=== PATIENT | female | born 1995 | race African-American/Black ===

== ENCOUNTER 2023-05-28 17:08 | Emergency (ER) | payer OTHER, SELFPAY ==
[2023-05-28] VITALS (9 sets, daily range): BP systolic 96–128; BP diastolic 53–98; PULSE 84–105; RESP 13–20; TEMP 36.2; O2SAT 93–100
--- NOTE | ~2023-05-28 | US_ITS ---
EXAMINATION: US OB <= 14 weeks fetus DATE: 05/28/2023 21:09 INDICATION: Left lower quadrant abdominal pain. Vaginal spotting. TECHNIQUE: Real-time transabdominal pelvic ultrasound was performed. COMPARISON: None. FINDINGS: The uterus measures 9.5 x 5.7 x 6.6 cm. There is an intrauterine gestational sac. A yolk sac is ident ified. The crown rump length measures 4 mm, which correlates with an estimated gestational age of 6 weeks and 1 day +/- 4 days. heart motion is identified measuring 148 beats per minute (bp m) by M-mode Doppler. The right ovary measures 3.4 x 2.4 x 2.0 cm. The left ovary is not visualized. There is no free fluid in the pelvis. IMPRESSION: 1. Single living intrauterine gestation with estimated date of delivery of 01/20/2024. Reviewed, dictated and finalized at location E. WORKER IMPRESSION: 1. Single living intrauterine gestation with estimated date of delivery of .
[2023-05-28 18:10] LABS: Basophils Absolute Auto 0.1 K/mm3 (0.0-0.1); Basophils Percent Auto 0.5 % (0.2-1.2); Eosinophils Percent Auto 0.1 % (0-4.4); Hematocrit 44.1 % (37.0-47.0); Hemoglobin 13.9 g/dL (12.0-15.0); Immature Granulocyte Absolute 0.02 K/mm3 (0.00-0.031); Immature Granulocyte Percent A 0.2 % (0-0.5); Lymphocytes Absolute Auto 3.31 K/mm3 (0.9-3.2); Lymphocytes Percent Auto 34.4 % (18.3-44.2); Mean Corpuscular HGB Conc 31.5 g/dl (32-36); Mean Corpuscular Hemoglobin 25.6 pg (26-34); Mean Corpuscular Volume 81.1 fl (80-100); Mean Platelet Volume 9.5 fl (7.4-10.4); Monocytes Absolute Auto 0.9 K/mm3 (0.1-0.6); Monocytes Percent Auto 9.6 % (2.6-8.5); Neutrophils Absolute Auto 5.3 K/mm3 (1.3-6.7); Neutrophils Percent Auto 55.2 % (45.5-73.1); Platelet Count Result 425 k/mm3 (150-375); Red Blood Count 5.44 M/mm3 (4.2-5.4); Red Cell Distribution Width 14.9 % (11.5-14.5); White Blood Count 9.6 K/mm3 (4.5-10.0)
[2023-05-28 18:18] LABS: Appearance Urine Clear (Clear); Bacteria Urine 1+ /hpf; Bilirubin Urine Negative (Negative); Blood Urine Negative (Negative); Color Urine Dark Yellow (Yellow); Glucose Urine UA Negative (Negative); Ketones Urine 3+ mg/dL (Negative); Leukocyte Esterase Ur Negative LEU/UL (Negative); Nitrate Urine Negative (Negative); Non Pathogenic Casts 0-2; Protein Urine Trace mg/dL (Negative); RBC Urine 0-2 /hpf (0-2); Specific Grav Ur 1.032 (1.001-1.035); Squamous Epithelial Cell Urine Few /hpf (Few); Urobilinogen Urine 0.2 mg/dL (<2.0); WBC Urine 0-5 /hpf
[2023-05-28 18:21] LABS: Alanine Aminotransferase 16 U/L (6-35); Albumin Level 4.8 g/dL (3.5-5.1); Alkaline Phosphatase 63 U/L (38-126); Anion Gap 12 mmol/L (8-16); Aspartate Amino Transferase 31 U/L (14-36); Bilirubin,Total 0.8 mg/dL (0.2-1.3); Blood Urea Nitrogen 10 mg/dL (7-17); Calcium 9.9 mg/dL (8.4-10.2); Carbon Dioxide 23 mmol/L (22-30); Chloride 101 mmol/L (98-107); Estimated CRCL calculation 91 ml/min; Estimated Glomerular Filt Rate > 60; Glucose 98 mg/dL (65-110); Lipase 40 U/L (23-300); Potassium 3.5 mmol/L (3.4-5.0); Sodium 136 mmol/L (137-145)
[2023-05-28 18:31] LABS: Add Urine Microscopic? YES
[2023-05-28] MEDS: METOCLOPRAMIDE HCL INJ 10 MG/2 ML VIAL IV PUSH (20:09)
[2023-05-28] MEDS: FAMOTIDINE 20 MG/2 ML VIAL IV PUSH (20:09)
[2023-05-28] MEDS: diphenhydrAMINE HCl INJ 50 MG/ML VIAL 25 MG IV PUSH (20:09)
[2023-05-28] MEDS: SODIUM CHLORIDE 0.9% IV 1,000 ML 999 ML IV CONT ×2 (20:09)
--- NOTE | 2023-05-28 20:39 | ED.NAVMDI ---
HPI - Nausea/Vomiting/Diarrhea General Chief complaint: Nausea/Vomiting/Diarrhea Stated complaint: vomitting, preg Time Seen by Provider: 05/28/23 18:30 Source: patient Mode of arrival: ambulatory Limitations: no limitations History of Present Illness HPI Narrative: Patient is a 27-year-old female who presents to the ED with report of nausea and vomiting. Patient reports having ongoing nausea and vomiting over the last 1 week, but states it became worse yesterday into today. She notes at least 10+ episodes of emesis yesterday and today. Patient is in currently approximately 6 weeks gestation by last normal menstrual cycle. She has not seen an OBGYN for this current . Has not had an ultrasound yet for this . She is scheduled to follow up with [facility] [place] in 2 weeks. She reports having lower abdominal cramping, worse on the left side, as well as a small amount of vaginal spotting with wiping earlier today. Denies heavy vaginal bleeding. Denies dysuria, hematuria. Denies diarrhea, constipation, fevers. Related Data Allergies Allergy/AdvReac Type Severity Reaction Status Date / Time No Known Allergies Allergy Verified 05/28/23 17:14 Review of Systems Review of Systems: CONSTITUTIONAL: Denies fever, chills, or sweats. CARDIOVASCULAR: Denies chest pain. RESPIRATORY: Denies dyspnea. GASTROINTESTINAL: See HPI. GENITOURINARY: See HPI. Denies dysuria or hematuria. All systems reviewed & are unremarkable except as noted in HPI and below Exam Narrative: GENERAL: Well appearing, thin, non-toxic, in no acute distress. HEAD: Normocephalic, atraumatic. RESPIRATORY: Airway patent, respirations nonlabored. Clear to auscultation bilaterally, no rales, rhonchi, wheezing. CARDIOVASCULAR: Borderline tachycardic with regular rhythm without murmurs, rubs, or gallops. ABDOMINAL: Soft, mild tenderness in LLQ, nondistended. Normoactive BS. MUSCULOSKELETAL: Moves all extremities. No gross deformities. SKIN: Warm, dry, normal color. NEURO: A&O X3. Speech clear. PSYCHIATRIC: Appropriate mood and affect. Normal interaction. Course Vital Signs Vital signs: Vital Signs Temperature 97.1 F L 05/28/23 17:09 Pulse Rate 102 H 05/28/23 17:09 Respiratory Rate 20 05/28/23 17:09 Blood Pressure 119/78 05/28/23 17:09 Pulse Oximetry 100 05/28/23 17:09 Oxygen Delivery Room Air 05/28/23 17:09 Temperature 97.1 F L 05/28/23 17:09 Pulse Rate 85 05/28/23 22:54 Respiratory Rate 16 05/28/23 22:54 Blood Pressure 102/53 L 05/28/23 22:54 Pulse Oximetry 97 05/28/23 22:54 Oxygen Delivery Room Air 05/28/23 17:09 MDM - Nausea/Vomiting/Diarrhea MDM Narrative Medical decision making narrative: Patient presented to ED with ongoing nausea and vomiting over the last 1 week, worse over the last 2 days, currently approximately 6 weeks gestation. Also reporting left lower quadrant abdominal pain, small episode of vaginal spotting, has not had previous ultrasound for this . Fluids, Benadryl, Reglan, Pepcid initiated. Laboratory studies fairly unremarkable. Stable H&H. No leukocytosis. Stable electrolytes. Urinalysis with 3+ ketones, no significant evidence for infection. Ultrasound obtained to rule out ectopic, shows single live IUP, 6 weeks 1 day. Good FHT. Beta quant [id number]. Patient is O+, no indication for RhoGAM. On reevaluation, patient sleeping/resting comfortably. Feeling better with supportive therapy. She was updated on lab and imaging findings. Will be discharged at this time. Will send for Reglan for home. Advised close follow-up with obgyn for further evaluation. Discussed strict return precautions. She agrees with plan. Discharged in stable condition. Medical Records Attestation: I reviewed the patient's medical records. Lab Data Attestation: I reviewed the patient's lab results. 05/28/23 17:53 05/28/23 17:53 Labs: Lab Resu
[2023-05-28] MEDS: ONDANSETRON INJ 4 MG/2 ML VIAL IV PUSH (22:22)
[2023-05-28] MEDS: ACETAMINOPHEN 500 MG TABLET 1000 MG PO (22:23)
[2023-05-29 00:27] VITALS: PULSE 72; RESP 16; O2SAT 98
== END 2023-05-29 00:28 | disposition home or self-care (01) ==
PROVIDERS: Emergency Medicine; Emergency Provider Physician Assistant
DX: O21.9 Vomiting of pregnancy, unspecified (principal); Z3A.01 Less than 8 weeks gestation of pregnancy
CPT/HCPCS: 36415; 76801; 80053; 81001; 81025; 83690; 84702; 85025; 85461; 86850; 86900; 86901; 96361; 96374; 96375; 99284; A9270; J1200; J2405; J2765; J7030

== ENCOUNTER 2023-06-02 15:05 | Emergency (ER) | payer OTHER, SELFPAY ==
--- NOTE | ~2023-06-02 | US_ITS ---
EXAMINATION: US OB <= 14 weeks fetus INDICATION: lower abdominal pain TECHNIQUE: Sonography of the pelvis was performed by transabdominal and transvaginal techniques. COMPARISON: 05/28/2023. RESULT: Uterus: 9.6 x 6.2 x 7.2 cm. Anteverted. Homogenous myometrium. Intrauterine gestational sac: Single present. Mean Sac Diameter: 2.5 cm, corresponding gestational age 7 week 4 days. Yolk sac: Poorly visualized due to lack of the normal echogenic wall, less well vi sualized in the prior examination. Somewhat tubular appearing echogenicity within the gestational sac , possibly representing early visualization of the umbilical cord. Embryo: Single present. [place] rump length: 0.82 cm, corresponding gestational age 6 weeks, 5 days. Gestational heart rate: present 136 bpm. Subgestational hematoma: Absent . Right ovary: 2.7 x 1.7 x 2.6 cm. Vascular flow is present. No adnexal mass. Left ovary: Obscured by bowel gas. Pelvis free fluid: None. IMPRESSION: Single, live intrauterine gestation. Poorly defined yolk sac, consider gynecology referral and sonogr aphic follow-up as clinically indicated. Estimated Gestational Age: 6 weeks, 5 days plus/-4 days by crown rump length. AROLDO by ultrasound 01/04. Reviewed, dictated and finalized at location K. OUNT CLERK IMPRESSION: Single, live intrauterine gestation. Poorly defined yolk sac, consider gynecolo gy referral and sonographic follow-up as clinically indicated. Estimated Gestational Age: 6 weeks, 5 days plus/-4 days by crown rump length. AROLDO by ultrasound 01/21/2024.
[2023-06-02 15:14] VITALS: BP 108/67; PULSE 81; RESP 20; TEMP 36.4; O2SAT 99
--- NOTE | 2023-06-02 15:22 | ED.NAVMDI ---
HPI - Nausea/Vomiting/Diarrhea General Chief complaint: Nausea/Vomiting/Diarrhea <BENNY Landis Last Filed: 06/02/23 15:26> Stated complaint: n/v/d abd pain <BENNY Landis Last Filed: 06/02/23 15:26> Time Seen by Provider: 06/02/23 15:22 <BENNY Landis Last Filed: 06/02/23 15:26> Focused HPI: Patient is a 28-year-old female who presents the ED via EMS with report of nausea and vomiting. Patient is in currently around 7 weeks gestation. She reports having persistent nausea and vomiting, unable to keep down any food or drink. She was seen in our ED on 05/28 for similar symptoms, improved with supportive therapy in the ED. Discharged with oral Reglan, however she states she is unable to keep this down. Patient feels very weak and fatigued. She does also report having diarrhea, lower abdominal cramping, subjective fevers. Denies cough or cold symptoms. US from 05/28 showed single live IUP, good FHTs. Patient has her first OBGYN appt with [facility] [place] in the next 2 weeks. She did not contact office after last ED visit. GENERAL: Mildly ill-appearing, well-nourished, and in no acute distress. HEAD: Normocephalic, atraumatic. CHEST: Clear to auscultation. ?No respiratory distress. Spitting into emesis bag. HEART: Regular rate and rhythm.? NEURO: ?Alert and oriented x3. Patient screened in triage and initial orders placed.? ?Additional care and disposition to be based upon?diagnostic testing and treatment. <BENNY Landis Last Filed: 06/02/23 15:26> Source: patient and old records reviewed <BENNY Landis Last Filed: 06/02/23 15:26> Mode of arrival: EMS <BENNY Landis Last Filed: 06/02/23 15:26> Limitations: no limitations <BENNY Landis Last Filed: 06/02/23 15:26> Related Data Allergies/Adverse reactions: Allergies Allergy/AdvReac Type Severity Reaction Status Date / Time No Known Allergies Allergy Verified 05/28/23 17:14 <BENNY Landis Last Filed: 06/02/23 15:26> Review of Systems Review of Systems: All systems as dictated in HPI <BENNY Pascual Last Filed: 06/03/23 00:59> Exam Narrative: GENERAL: Well-appearing, well-nourished, and in no acute distress. HEAD: Normocephalic, atraumatic. EYES: PERRLA and EOMI. ENT: Nares clear, no rhinorrhea or epistaxis. Mucous membranes moist. Oropharynx without tonsillar hypertrophy exudate or other lesions. NECK: Supple. No adenopathy or masses. CHEST: No respiratory distress. Clear to auscultation. No wheezes rales or rhonchi HEART: Regular rate and rhythm. No murmur heard. Normal peripheral pulses. ABDOMEN: Soft, nontender, nondistended, normal active bowel sounds. MSK: Normal range of motion. No edema. SKIN: Warm, dry, no rash. NEURO: Alert and oriented x3. No focal deficits. PSYCH: Normal mood and affect. <BENNY Pascual Last Filed: 06/03/23 00:59> Course Vital Signs Vital signs: Vital Signs Temperature 97.5 F L 06/02/23 15:14 Pulse Rate 81 06/02/23 15:14 Respiratory Rate 20 06/02/23 15:14 Blood Pressure 108/67 06/02/23 15:14 Pulse Oximetry 99 06/02/23 15:14 Oxygen Delivery Room Air 06/02/23 15:14 Temperature 99.5 F 06/02/23 18:21 Pulse Rate 84 06/02/23 20:40 Respiratory Rate 13 06/02/23 20:40 Blood Pressure 118/72 06/02/23 20:40 Pulse Oximetry 100 06/02/23 20:40 Oxygen Delivery Room Air 06/02/23 19:05 <BENNY Landis Last Filed: 06/02/23 15:26> Vital Signs Temperature 97.5 F L 06/02/23 15:14 Pulse Rate 81 06/02/23 15:14 Respiratory Rate 20 06/02/23 15:14 Blood Pressure 108/67 06/02/23 15:14 Pulse Oximetry 99 06/02/23 15:14 Oxygen Delivery Room Air 06/02/23 15:14 Temperature 99.5 F 06/02/23 18:21 Pulse Rate 84 06/02/23 20:40 Respiratory Rate 13 06/02/23 20
[2023-06-02] MEDS: METOCLOPRAMIDE HCL INJ 10 MG/2 ML VIAL IV PUSH (15:44)
[2023-06-02 15:52] LABS: Basophils Percent Auto 0.3 % (0.2-1.2); Eosinophils Percent Auto 0.1 % (0-4.4); Hematocrit 36.6 % (37.0-47.0); Hemoglobin 11.7 g/dL (12.0-15.0); Immature Granulocyte Absolute 0.01 K/mm3 (0.00-0.031); Immature Granulocyte Percent A 0.1 % (0-0.5); Lymphocytes Absolute Auto 2.23 K/mm3 (0.9-3.2); Lymphocytes Percent Auto 29.6 % (18.3-44.2); Mean Corpuscular Hemoglobin 25.6 pg (26-34); Mean Corpuscular Volume 80.1 fl (80-100); Mean Platelet Volume 9.5 fl (7.4-10.4); Monocytes Absolute Auto 0.6 K/mm3 (0.1-0.6); Monocytes Percent Auto 7.4 % (2.6-8.5); Neutrophils Absolute Auto 4.7 K/mm3 (1.3-6.7); Neutrophils Percent Auto 62.5 % (45.5-73.1); Platelet Count Result 332 k/mm3 (150-375); Red Blood Count 4.57 M/mm3 (4.2-5.4); Red Cell Distribution Width 14.6 % (11.5-14.5); White Blood Count 7.5 K/mm3 (4.5-10.0)
[2023-06-02 15:58] VITALS: BP 120/66; PULSE 99; RESP 16; O2SAT 97
[2023-06-02 16:11] LABS: Alanine Aminotransferase 14 U/L (6-35); Albumin Level 4.2 g/dL (3.5-5.1); Alkaline Phosphatase 62 U/L (38-126); Anion Gap 6 mmol/L (8-16); Aspartate Amino Transferase 31 U/L (14-36); Bilirubin,Total 0.6 mg/dL (0.2-1.3); Blood Urea Nitrogen 9 mg/dL (7-17); Calcium 9.3 mg/dL (8.4-10.2); Carbon Dioxide 25 mmol/L (22-30); Chloride 102 mmol/L (98-107); Estimated Glomerular Filt Rate > 60; Glucose 80 mg/dL (65-110); Magnesium 1.8 mg/dL (1.6-2.3); Potassium 3.2 mmol/L (3.4-5.0); Sodium 133 mmol/L (137-145)
[2023-06-02 16:32] LABS: Influenza A QL RT-PCR Negative (Negative); Influenza B QL RT-PCR Negative (Negative); RSV RNA, RT-PCR Negative (Negative); SARS-CoV-2 RNA PCR Negative (Negative)
[2023-06-02] MEDS: SODIUM CHLORIDE 0.9% IV 1,000 ML 999 ML IV CONT (18:19)
[2023-06-02 18:21] VITALS: BP 110/70; PULSE 82; RESP 14; TEMP 37.5; O2SAT 100
[2023-06-02] MEDS: ACETAMINOPHEN 500 MG TABLET 1000 MG PO (19:03)
[2023-06-02] MEDS: ONDANSETRON INJ 4 MG/2 ML VIAL IV PUSH (19:03)
[2023-06-02 19:05] VITALS: BP 114/70; PULSE 86; RESP 18; O2SAT 100
[2023-06-02 19:37] LABS: Appearance Urine Cloudy (Clear); Bacteria Urine 1+ /hpf; Bilirubin Urine Negative (Negative); Blood Urine Negative (Negative); Color Urine Yellow (Yellow); Glucose Urine UA Negative (Negative); Ketones Urine 4+ mg/dL (Negative); Leukocyte Esterase Ur Trace LEU/UL (Negative); Nitrate Urine Negative (Negative); Non Pathogenic Casts 0-2; Protein Urine 1+ mg/dL (Negative); RBC Urine 0-2 /hpf (0-2); Specific Grav Ur 1.034 (1.001-1.035); Squamous Epithelial Cell Urine Few /hpf (Few); WBC Urine 0-5 /hpf; pH Urine 6.5 (5.0-9.0)
[2023-06-02 19:39] LABS: Add Urine Microscopic? YES
[2023-06-02] MEDS: PYRIDOXINE HCL 25 MG TABLET PO (20:33)
[2023-06-02 20:36] VITALS: BP 118/72; O2SAT 99
[2023-06-02 20:40] VITALS: BP 118/72; PULSE 84; RESP 13; O2SAT 100
== END 2023-06-02 21:30 | disposition home or self-care (01) ==
PROVIDERS: Physician Assistant; Emergency Provider Physician Assistant
DX: O21.0 Mild hyperemesis gravidarum (principal); Z3A.01 Less than 8 weeks gestation of pregnancy; Z20.822 Contact with and (suspected) exposure to COVID-19
CPT/HCPCS: 36415; 76801; 80053; 81001; 83735; 84702; 85025; 87637; 96361; 96374; 96375; 99284; A9270; J2405; J2765; J7030

== ENCOUNTER 2023-12-28 19:07 | Inpatient (IN) | payer OTHER, SELFPAY ==
[2023-12-28 20:34] VITALS: BMI 27.3
--- NOTE | 2023-12-28 20:34 | WPDANESEPP ---
Anes - Eval Pre Procedure Procedure: labor epidural Date/Time: 12/28/23 20:34 Surgeon: augie Preop Diagnosis: pain during labor Pre Op Diagnosis: leaking Patient Data Age: 28 Gender: F Height: Weight: Allergies Allergy/AdvReac Type Severity Reaction Status Date / Time No Known Allergies Allergy Verified 05/28/23 17:14 Home Medications Medication Instructions Recorded Confirmed Type metoclopramide HCl 5 mg tablet 5 mg PO Q6H PRN nausea and 05/28/23 Rx vomiting #15 tabs ondansetron 4 mg disintegrating 4 mg PO Q8H PRN nausea and 06/02/23 Rx tablet vomiting #10 tabs pyridoxine (vitamin B6) 25 mg 25 mg PO DAILY #30 tabs 06/02/23 Rx tablet Laboratory Tests 12/28/23 20:17 WBC Pending RBC Pending Hgb Pending Hct Pending MCV Pending MCH Pending MCHC Pending RDW Pending Plt Count Pending MPV Pending Immature Gran % (Auto) Pending Neut % (Auto) Pending Lymph % (Auto) Pending [place] % (Auto) Pending Eos % (Auto) Pending Baso % (Auto) Pending Lymph # (Auto) Pending [place] # (Auto) Pending Eos # (Auto) Pending Baso # (Auto) Pending Abs Immat Gran (auto) Pending Absolute Neuts (auto) Pending Absolute Nucleated RBC Pending Nucleated RBC % Pending RPR Pending HIV 1&2 Ab/P24 Ag 4thGn Pending Patient hx anesthesia problems: none Family hx anesthesia problems: none Results Review: All pre-operative results and documents have been reviewed as part of the pre-operative evaluation. [facility] Past Medical History Medical History (Updated 12/28/23 @ 20:34 by Renay Burks CRNA) IUP (intrauterine ), incidental Exam Day of Procedure 12/28/23 20:34
--- NOTE | 2023-12-28 20:34 | LDADM ---
This patient, Sally De Oliveira, was admitted to Labor/Delivery/Recovery 106 on 12/28/23 at 19:07. Plans for labor, pain management and were discussed with patient. Patient/family oriented to hospital policies and general routines including ID bracelet, bed and alarms, visiting hours, pain management, procedures, bathroom and other care routines, personal items, smoking policy, room service/diet and guest tray routines, infant security routines, and visiting hours. Patient/Family are encouraged to report perceived risks to care and to ask questions if they do not understand what they are told or what they should do. See OBIX for further documentation.
[2023-12-28 20:49] LABS: Basophils Percent Auto 0.3 % (0.2-1.2); Eosinophils Percent Auto 0.3 % (0-4.4); Hematocrit 37.1 % (37.0-47.0); Hemoglobin 11.5 g/dL (12.0-15.0); Immature Granulocyte Absolute 0.04 K/mm3 (0.00-0.031); Immature Granulocyte Percent A 0.5 % (0-0.5); Immature Platelet Fraction Pct 8.2 % (0.9-11.2); Lymphocytes Absolute Auto 2.11 K/mm3 (0.9-3.2); Lymphocytes Percent Auto 23.9 % (18.3-44.2); Mean Corpuscular Volume 77.3 fl (80-100); Mean Platelet Volume 11.6 fl (7.4-10.4); Monocytes Absolute Auto 0.7 K/mm3 (0.1-0.6); Monocytes Percent Auto 7.8 % (2.6-8.5); Neutrophils Absolute Auto 5.9 K/mm3 (1.3-6.7); Neutrophils Percent Auto 67.2 % (45.5-73.1); Platelet Count Result 237 k/mm3 (150-375); White Blood Count 8.8 K/mm3 (4.5-10.0)
--- NOTE | 2023-12-28 21:04 | PM.IMHP ---
H&P: HPI History of Present Illness Date/Time: 12/28/23 21:04 Chief Complaint: leakage of clear fluid since 1500 Narrative: Sally is a 28yo @ 36.4wks (AROLDO 01/21/24) who presented to L&D with complaints of leakage of clear fluid since 3pm today. She reports contractions. She's feeling good movement. She denies any vaginal bleeding. She has had regular care at [place]. Review of records indicate possible SGA, but EFW at end of Nov 2023 showed EFW of 38%ile. GBS is unknown. UDS positive for marijuana. Other labs reviewed and normal. Review of Systems Constitutional: Constitutional: Denies chills, Denies fever(s) and Denies headache(s) Eyes: Eyes: Denies change in vision ENT: Denies headache(s) Cardiovascular: Cardiovascular: Denies chest pain and Denies dyspnea Respiratory: Respiratory: Denies dyspnea Genitourinary: Genitourinary: Denies abnormal vaginal bleeding and Reports vaginal discharge Neurologic: Denies headache(s) Psychiatric: Psychiatric: Denies anxiety and Denies depression [facility] Past Medical History Medical History (Updated 12/28/23 @ 21:07 by Nidia Wallace MD) IUP (intrauterine ), incidental Social History Social History Smoking status: Never smoker Second hand tobacco smoke exposure: No Do You Feel Safe in your Home?: Yes Lack of Transportation: No Lack of Food: Never True Current Housing: I Have Housing Concerned About Future Housing: No Difficulty Paying Gas/Electric Bills: No Difficulty Paying for Meds: No Currently Unemployed: No Education: High School Diploma/GED Difficulty w/ Childcare or Family Care: No Spiritual care concerns: No Meds Home Medications and Allergies Home Medications Medication Instructions Recorded Confirmed Type metoclopramide HCl 5 mg tablet 5 mg PO Q6H PRN nausea and 05/28/23 Rx vomiting #15 tabs ondansetron 4 mg disintegrating 4 mg PO Q8H PRN nausea and 06/02/23 Rx tablet vomiting #10 tabs pyridoxine (vitamin B6) 25 mg 25 mg PO DAILY #30 tabs 06/02/23 Rx tablet Allergies Allergy/AdvReac Type Severity Reaction Status Date / Time No Known Allergies Allergy Verified 05/28/23 17:14 Vital Signs Vital Signs - 24 hr 12/28/23 20:34 Oxygen Delivery Room Air Exam Const: General: cooperative, healthy appearing, comfortable and no acute distress Nutritional Appearance: obese Orientation/consciousness: patient oriented x3 Resp: Effort & Inspection: normal respiratory effort Cardio: Rate: regular rate GI: GI Palp: No abdominal tenderness : Other: FHT's: 135's/ mod jac/ + accels/ no decels - cat 1 TOCO: irregular ctxs Cervix: 5/75/-2 Membranes: SROM @ 1500 on 12/28/23 Presentation: cephalic Skin: General skin exam: normal color Neuro: General: patient oriented x3 Extrem: General: normal to inspection Psych: Appearance: grossly normal Affect: normal affect Attitude: cooperative Assessment and Plan Assessment and plan (1) premature rupture of membranes (PPROM) with unknown onset of labor: Code(s): O42.919 - premature rupture of membranes, unspecified as to length of time between rupture and onset of labor, unspecified trimester Status: Acute Plan - ROM+ swab positive on exam; pt 5cm dilated - Ampicillin for prematurity and GBS unknown - Continuous heart rate monitoring; currently reassuring - Will start low dose pitocin augmentation if cervix unchanged after 2 hours - Anesthesia consult PRN pain
[2023-12-28 21:11] LABS: Platelet Estimate Adequate (Adequate); Schistocytes None Seen
[2023-12-28 21:12] LABS: Anisocytosis 2+; Hypochromasia 1+
[2023-12-28 21:16] LABS: HIV 1/2 Ab P24 Ag Result Negative (Negative)
[2023-12-28] MEDS: LACTATED RINGERS 1,000 ML 125 ML IV CONT (21:29)
[2023-12-28] MEDS: AMPICILLIN 2 GM/NS 100 ML 2 GM/100 ML BAG IVPB (21:31)
[2023-12-28 21:43] LABS: Rapid Plasma Reagin Non-Reactive (NonReactive)
[2023-12-28 21:46] VITALS: BP 102/57; PULSE 88
[2023-12-28 21:48] VITALS: TEMP 37.1
[2023-12-28 21:59] LABS: OBXCEM ROM Plus Positive (Negative)
[2023-12-28 22:00] VITALS: BP 121/75
[2023-12-28 22:30] VITALS: BP 126/78; PULSE 121
[2023-12-28 23:00] VITALS: BP 119/87; PULSE 93; TEMP 36.6
[2023-12-28 23:51] VITALS: BP 104/69; PULSE 88
[2023-12-29] VITALS (35 sets, daily range): BP systolic 93–128; BP diastolic 54–87; PULSE 62–106; RESP 16; TEMP 36.6–37.3; O2SAT 96–100
[2023-12-29] MEDS: OXYTOCIN 30 UNITS/NS 500 ML 30 UNITS/500 ML BAG IV CONT (00:22)
[2023-12-29] MEDS: AMPICILLIN 1 GM/NS 50 ML 1 GM/50 ML BAG IVPB (01:30)
[2023-12-29] MEDS: fentaNYL CITRATE INJ (*CRX) 100 MCG/2 ML VIAL 50 MCG IV PUSH (04:39)
[2023-12-29] MEDS: LACTATED RINGERS 1,000 ML 125 ML IV CONT (04:42)
--- NOTE | 2023-12-29 05:31 | PM.OBPRVD ---
OB - Vaginal Delivery Note Procedure Delivery date: 12/29/23 Events: Premature Rupture of Membranes Delivery augmentation: Pitocin Delivery monitor: External FHT and External Uterine Route of delivery: Episiotomy description: None Laceration Description: Perineal - 1st Degree Delivery repair: vicryl Specimen: Yes (placenta) Quantitative Blood Loss (ml): 150 Anesthesia type: Local (7cc of 1% lidocaine w/o epi) Disposition: Floor Complications: No immediate complications Baby Date of : 12/29/23 Time of : 05:05 Gestational Age by Date: 36 (.5) gender: Female Weight (pounds): 5 Weight (ounces): 10 presentation: vertex position: Left Occiput Transverse Placenta delivery description: Expressed Cord Vessel Description: 3 Vessels, Nuchal Cord, Reduced and Delayed Cord Clamping score one minute: 9 score five minutes: 9 Narrative: Sally rapidly progressed to complete dilation with strong desire to push. She pushed for approximately 2 contractions with good maternal effort and delivered the head over intact. Nuchal cord was noted and reduced. She easily delivered the infant's shoulders and body without complication and the was immediately placed skin to skin and had spontaneous cry. Delayed cord clamping was performed. The umbilical cord was then doubly clamped and cut. A segment of cord was collected for cord gases. The remaining cord blood was collected for typing. With Pitocin running and gentle downward traction on the cord, the placenta delivered without complication. Fundal massage revealed good uterine tone with minimal bleeding. She was examined and a small first-degree perineal laceration was identified. She was anesthetized with 1% lidocaine without epinephrine. The laceration was then repaired in the normal fashion using 2-0 Vicryl and was found to be hemostatic. Fundal massage was once again performed and good uterine tone with minimal bleeding was noted. Sponge, lap, instrument, and needle counts were correct at the end of the procedure. Mom and baby were left bonding in the birthing suite in stable condition.
[2023-12-29] MEDS: OXYTOCIN 30 UNITS/NS 500 ML 30 UNITS/500 ML BAG 125 UNITS IV CONT (05:42)
--- NOTE | 2023-12-29 09:00 | OBPPTRN ---
Patient transferred to post room #282 via wheelchair. Support person present. Oriented to unit, room, information board, rooming in, admission packet and security measures. Patient verbalizes understanding.
[2023-12-29] MEDS: IBUPROFEN 600 MG TABLET PO (10:36)
--- NOTE | 2023-12-29 13:58 | PCCCNOTE ---
Per Care Coordination. Patient referred to CC for possible supply needs and walk in delivery. Spoke with pt. at bedside. She reports wanting to deliver here because she's heard we're a good hospital. She reports just recently moved to [place] in the last 2 months. She plans to return there with her other kids after delivery. Pt. got her care at [place] in which the doctors there deliver in [place] and pt. wanted to deliver here. No UDS done for mom or baby. Pt. reports had baby shower day before she came in, so she has most supplies, but needs a few more things. Provided her with basket of baby care items. Pt. reports having family support. FOB involved, but they don't live together. Provided pt. WIC information for [place] near where she lives. No further CC needs identified.
[2023-12-29] MEDS: DOCUSATE SODIUM 100 MG CAPSULE PO (17:20)
[2023-12-30] MEDS: ACETAMINOPHEN 325 MG TABLET 650 MG PO ×2 (00:20→16:05)
[2023-12-30 04:30] VITALS: BP 112/84; PULSE 61; RESP 16; TEMP 36.5; O2SAT 100
[2023-12-30 04:42] LABS: Hematocrit 34.2 % (37.0-47.0); Mean Corpuscular HGB Conc 32.2 g/dl (32-36); Mean Corpuscular Hemoglobin 24.7 pg (26-34); Mean Corpuscular Volume 76.9 fl (80-100); Mean Platelet Volume 11.2 fl (7.4-10.4); Platelet Count Result 246 k/mm3 (150-375); Red Blood Count 4.45 M/mm3 (4.2-5.4); Red Cell Distribution Width 20.5 % (11.5-14.5); White Blood Count 10.7 K/mm3 (4.5-10.0)
--- NOTE | 2023-12-30 06:26 | PM.OBPNVD ---
OB - PN: Subj Subjective Date/time seen: 12/30/23 07:03 Narrative: PPD#1 Sally reports doing well today. 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 Her pain is controlled. She is tolerating regular diet, voiding, passing gas, and ambulating without issues. She is breast and bottle feeding. OB - PN: Obj Data Labs 12/30/23 04:28 Labs: Laboratory Results - last 24 hr 12/28/23 12/28/23 12/28/23 19:24 20:17 20:18 WBC RBC Hgb Hct MCV MCH MCHC RDW Plt Count MPV Immature Gran % (Auto) Neut % (Auto) Lymph % (Auto) [place] % (Auto) Eos % (Auto) Baso % (Auto) Lymph # (Auto) [place] # (Auto) Eos # (Auto) Baso # (Auto) Abs Immat Gran (auto) Absolute Neuts (auto) Absolute Nucleated RBC Nucleated RBC % Platelet Estimate % Immature Plt Fraction Hypochromasia Anisocytosis Schistocytes Membranes Rupture Rom plus positive RPR Non-reactive HIV 1&2 Ab/P24 Ag 4thGn Negative Blood Type O Positive Antibody Screen Negative 12/28/23 20:38 WBC 8.8 RBC 4.80 Hgb 11.5 L Hct 37.1 MCV 77.3 L MCH 24.0 L MCHC 31.0 L RDW 21.0 H Plt Count 237 MPV 11.6 H Immature Gran % (Auto) 0.5 Neut % (Auto) 67.2 Lymph % (Auto) 23.9 [place] % (Auto) 7.8 Eos % (Auto) 0.3 Baso % (Auto) 0.3 Lymph # (Auto) 2.11 [place] # (Auto) 0.7 H Eos # (Auto) 0.0 Baso # (Auto) 0.0 Abs Immat Gran (auto) 0.04 H Absolute Neuts (auto) 5.9 Absolute Nucleated RBC 0.000 Nucleated RBC % 0.0 Platelet Estimate Adequate % Immature Plt Fraction 8.2 Hypochromasia 1+ Anisocytosis 2+ Schistocytes None seen Membranes Rupture RPR HIV 1&2 Ab/P24 Ag 4thGn Blood Type Antibody Screen OB - PN A/P Assessment and Plan (1) Normal vaginal delivery: Code(s): O80 - Encounter for full-term uncomplicated delivery Status: Acute (2) premature rupture of membranes (PPROM) with unknown onset of labor: Code(s): O42.919 - premature rupture of membranes, unspecified as to length of time between rupture and onset of labor, unspecified trimester Status: Acute Plan day: 1 Plan: routine care Comments: - PO pain meds - Regular diet - Ambulation and hydration encouraged - Continue putting baby to breast q2-3hr Time Spent With Patient Time: Total time spent is greater than 50% in coordination of care (as documented) at patient's floor/unit and/or counseling patient: Review of Systems Constitutional: Constitutional: Denies chills, Denies fever(s) and Denies headache(s) Eyes: Eyes: Denies change in vision ENT: Denies dizziness and Denies headache(s) Cardiovascular: Cardiovascular: Denies chest pain, Denies palpitations and Denies dyspnea Respiratory: Respiratory: Denies cough and Denies dyspnea Gastrointestinal: Gastrointestinal: Denies nausea and Denies vomiting Neurologic: Denies dizziness and Denies headache(s) Endocrine: Endocrine: Denies palpitations Exam Const: General: cooperative, comfortable and no acute distress Orientation/consciousness: patient oriented x3 Resp: Effort & Inspection: normal respiratory effort Auscultation: clear to auscultation bilaterally Cardio: Rate: regular rate GI: Inspection: non-distended GI Palp: No abdominal tenderness and Yes Soft to palpation Auscultation: normal bowel sounds : Other: fundus firm Skin: General skin exam: normal color Neuro: General: patient oriented x3 Extrem: General: normal to inspection Psych: Appearance: grossly normal Affect: normal affect Attitude: cooperative
[2023-12-30] MEDS: MULTIVIT/MIN/PREN/FOL AC/IRON TABLET 1 TAB PO (07:42)
[2023-12-30] MEDS: DOCUSATE SODIUM 100 MG CAPSULE PO (07:43)
[2023-12-30 07:55] VITALS: BP 106/76; PULSE 80; RESP 18; TEMP 36.6; O2SAT 100
[2023-12-30 19:20] VITALS: BP 123/68; PULSE 63; RESP 16; TEMP 36.6; O2SAT 99
--- NOTE | 2023-12-31 06:42 | P.DS_ITS ---
DS: Admitting Diagnosis Discharge Date 12/31/23 Admitting Diagnosis PPROM DS: Discharge Diagnosis Discharge Diagnosis (1) Normal vaginal delivery: Code(s): O80 - Encounter for full-term uncomplicated delivery Status: Acute (2) premature rupture of membranes (PPROM) with unknown onset of labor: Code(s): O42.919 - premature rupture of membranes, unspecified as to length of time between rupture and onset of labor, unspecified trimester Status: Acute OB - DS: Summary OB Procedures : Ultrasound OB Procedures Intrapartum: Spontaneous Vag Delivery OB Procedures: : None Peripartum Data Infant Delivery Method: Natural Vaginal Laceration Description: Perineal - 1st Degree Episiotomy description: None complications: none [place] 1: Gender: Female Status at Discharge Functional status at discharge: independent ambulation Overall status at discharge: patient is back to baseline Time Spent with Patient Time attestation: Total time spent providing and/or coordinating discharge services: Time spent: Less than 30 minutes Exam Const: General: cooperative, healthy appearing, comfortable and no acute distress Orientation/consciousness: patient oriented x3 Resp: Effort & Inspection: normal respiratory effort Auscultation: clear to auscultation bilaterally Cardio: Rate: regular rate GI: Inspection: non-distended GI Palp: No abdominal tenderness and Yes Soft to palpation Auscultation: normal bowel sounds : Other: fundus firm Skin: General skin exam: normal color Neuro: General: patient oriented x3 Extrem: General: normal to inspection Psych: Appearance: grossly normal Affect: normal affect Attitude: cooperative DS: Data Data Completed and Pending Pending studies at discharge: Pending at discharge 12/29/23 05:58 Surgical [PTH] Routine Discharge Plan Discharge Attending physician on discharge: Nidia Wallace Discharging Clinician: Nidia Wallace Patient Disposition: Home, Self-Care Activity: may shower and pelvic rest Diet: regular Patient Instructions: Vaginal Delivery (DC) Stand Alone Forms: General Discharge Information Follow-up/Referrals: Nidia Wallace MD [Physician] - 4 Weeks Discharge Medications: New acetaminophen 325 mg Tablet 650 mg PO Q6H PRN (Reason: Mild Pain (1-3) Or Headache) Qty: 60 0RF docusate sodium 100 mg Capsule 100 mg PO BID PRN (Reason: Constipation) Qty: 60 0RF ibuprofen 600 mg Tablet 600 mg PO Q6H PRN (Reason: Cramping) Qty: 40 0RF Continued PNV cmb#95-ferrous fumarate-FA [] 28 mg iron- 800 mcg tablet 28 tablet PO DAILY ferrous sulfate [FeroSul] 325 mg (65 mg iron) tablet 325 mg PO DAILY Discontinued pyridoxine (vitamin B6) 25 mg tablet 25 mg PO DAILY Qty: 30 0RF ondansetron 4 mg tablet,disintegrating 4 mg PO Q8H PRN (Reason: nausea and vomiting) Qty: 10 0RF metoclopramide HCl 5 mg tablet 5 mg PO Q6H PRN (Reason: nausea and vomiting) Qty: 15 0RF Date of admission: 12/28/23 19:07 Primary Care Provider: PHYSICIAN,STAGE ELECTRICIAN HELPER Admitting Provider: Nidia Wallace Attending physician on admission: Nidia Wallace Condition: Stable
[2023-12-31 07:30] VITALS: BP 112/72; PULSE 66; RESP 16; TEMP 36.6; O2SAT 100
[2023-12-31] MEDS: MULTIVIT/MIN/PREN/FOL AC/IRON TABLET 1 TAB PO (08:47)
[2023-12-31] MEDS: DOCUSATE SODIUM 100 MG CAPSULE PO (08:47)
--- NOTE | 2023-12-31 16:00 | PC.NURSE ---
Patient refuses follow up appointment.
== END 2023-12-31 16:35 | disposition home or self-care (01) | DRG 560 ==
LOC: ANHLDR 20:15 → ANHOB2 12-29 09:16
PROVIDERS: Admitting Provider Obstetrics & Gynecology; Visit Provider Obstetrics & Gynecology
DX: O36.5930 Maternal care for other known or suspected poor fetal growth, third trimester, not applicable or unspecified (principal); O70.0 First degree perineal laceration during delivery; O69.81X0 Labor and delivery complicated by cord around neck, without compression, not applicable or unspecified; O42.913 Preterm premature rupture of membranes, unspecified as to length of time between rupture and onset of labor, third trimester; Z3A.36 36 weeks gestation of pregnancy; Z37.0 Single live birth
CPT/HCPCS: 36415; 84112; 85025; 85027; 85055; 86592; 86703; 86850; 86900; 86901; 88307; A9270; G0432; J0290; J2590; J3010; J7120

== ENCOUNTER 2024-05-18 08:26 | Emergency (ER) | payer MEDICAID, SELFPAY ==
--- NOTE | ~2024-05-18 | XR_ITS ---
EXAMINATION: XR chest 2V DATE: 05/18/2024 09:08 INDICATION: Chest pain. TECHNIQUE: Frontal and lateral views of the chest were obtained. COMPARISON: None. FINDINGS: There is no pneumonia, pleural effusion, or pneumothorax. The heart size is normal. IMPRESSION: 1. No acute cardiopulmonary disease. Reviewed, dictated and finalized at location A. RAL ASSISTANT
[2024-05-18 08:35] VITALS: BP 117/78; PULSE 72; RESP 16; TEMP 36.4; O2SAT 100
--- NOTE | 2024-05-18 08:40 | ECG_ITS ---
Test Date: 2024-05-18 08:46:12 Measurements Intervals Morgan Rate: 67 P: 65 NE: 161 QRS: 28 QRSD: 78 T: 54 QT: 365 QTc: 387 Interpretive Statements SINUS RHYTHM WITH SINUS ARRHYTHMIA LOW QRS VOLTAGE IN PRECORDIAL LEADS POSSIBLE RIGHT VENTRICULAR CONDUCTION DELAY BASELINE WANDER- I, II, AVR, AVL, V3-V6 BORDERLINE ECG No previous ECG available for comparison Electronically Signed On 05-18-2024 08:50:47 CORPORATE LEARNING CONSULTANT by Philipp Mejia D.O.
[2024-05-18 08:53] VITALS: O2SAT 100
--- OUTSIDE RECORDS SUMMARY | 2024-05-18 08:54 | XMS_ITS | Clinical Summary ---
Author Organization [facility] Address [address] [place] [address] Care Team Providers Care Sales Clerk Name Role Phone Faye Hood NP Primary Care Provider Allergies No known active allergies Medications metoclopramide (REGLAN) 5 mg tablet Take 1 tablet (5 mg total) by mouth every 6 (six) hours 90 tablet 3 4 Active ondansetron ODT (ZOFRAN-ODT) 4 mg disintegrating tablet Take 1 tablet (4 mg total) by mouth every 8 (eight) hours as needed for nausea or vomiting 90 tablet 3 4 Active Active Problems Problem Noted Date Diagnosed Date Ptyalism 06/10/2023 Hyperemesis affecting , antepartum 07/2023 Gonorrhea 06/03/2018 Well woman exam with routine gynecological exam 06/02/2018 Overview (06/02/2018): -Reviewed general breast health. -Pap w/reflex to HPVcollected. -NG/CT DNA Screening. -Declines HPV Vaccine today-information handout given. -Follow up in 1 year if normal. Dysuria 06/02/2018 Overview (06/02/2018): -Check Urine culture-await results for necessary Treatment. Encounter for counseling and instruction in natural family planning to avoid 06/02/2018 Overview (06/02/2018): -Educated on menstrual cycle and natural family Planning. Verbalizes understanding. Resolved Problems Problem Noted Date Diagnosed Date Resolved Date Excessive and frequent menst ruation with irregular cycle 11/18/2017 06/02/2018 Assessment & Plan (11/18/2017 9:53 AM CDT): RTC if sx persist. ED precautions given for excessive bleeding. Screening for STD (sexually transmitted disease) 11/18/2017 06/02/2018 Cervicitis 11/18/2017 06/02/2018 Bacterial vaginitis 11/18/2017 06/02/19 19 Immunizations Name Administration Dates Next Due Influenza, Quadrivalent, Spl it, Preservative Free, Intramuscular 04/15/2016 Influenza, Unspecified 02/11/2013 Family History Medical History Relation Name Comments Hypertension Father No Known Problems Mother Relation Name Status Comments Father Alive Mother Alive Social History Tobacco Use Types Packs/Day Years Used Date Smoking Tobacco: Never Smokeless Tobacco: Never Alcohol Use Standard Drinks/Week Comments No 0 (1 standard drink = 0.6 oz pur e alcohol) [facility] Utilities Answer Date Recorded In the past 12 months has e [employer], gas, oil, or water [employer] threatened to shut off services in your home? No 06/09/2023 Social Connection and Isolation Panel [NHANES] A nswer Date Recorded In a typical week, how many times do you talk on the phone with family, friends, or neighbors? Three times a week 06/09/2023 How often do you get togethe r with friends or relatives? Once a week 06/09/2023 How often do you attend chur ch or methodist services? Never 06/09/2023 Do you belong to any clubs o r organizations such as protestant groups, unions, fraternal or athletic groups, or school groups? No 06/09/2023 How often do you attend meet ings of the clubs or organizations you belong to? Never 06/09/2023 Are you , , di vorced, , never , or living with a partner? Never 06/09/2023 Overall Financial Resource Strain (CARDIA) Answe r Date Recorded How hard is it for you to pa y for the very basics like food, housing, medical care, and heating? Not hard at all 06/09/2023 Hunger Vital Sign Answer Date Recorded Within the past 12 months, y ou worried that your food would run out before you got the money to buy more. Never true 06/09/19 24 Within the past 12 months, t he food you bought just didn't last and you didn't have money to get more. Never true 06/09/2023 PRAPARE - Transportation Answer Date Re corded In the past 12 months, has l ack of transportation kept you from medical appointments or from getting medications? No 08/2023 In the past 12 months, has l ack of transportation kept you from meetings, work, or from getting things needed for daily living? No 06/09/2023 Housing Stability Vital Sign Answer Veto e Recorded In the last 12 months, was t here a time when you were not able to pay the mortgage or rent on time? No 06/09/2023 In the last 12 months, how many places have you lived? 1 06/09/2023 In the last 12 months, was t here a time when you did not have a steady place to sleep or slept in a retirement (including now)? No 06/09/2023 Personal Safety Answer Date Recorded Have you ever been in or are you currently in a harmful physical or emotional relationship or is someone making you feel afraid or unsafe? Denies 06/08/2023 Comments No Sex and Gender Information Value Date Recorded Sex Assigned at Not on file Legal Sex Female 8:26 AM DIGITAL ADVISOR Gender Identity Not on file Sexual Orientation Not on file Occupation Industry Job Start Date Job End Date [employer] Not on file Not on file Not on bridgett e Obstetrics History Last Filed Vital Signs Vital Sign Reading Time Taken Comments Blood Pressure 108/66 06/10/2023 3:25 PM DIGITAL ADVISOR Pulse 85 06/10/2023 3:25 PM DIGITAL ADVISOR Temperature 37.2 C (99 F) 06/10/2023 3:25 PM DIGITAL ADVISOR Respiratory Rate 14 06/10/2023 3:25 PM DIGITAL ADVISOR Oxygen Saturation 100% 06/10/2023 3:25 PM DIGITAL ADVISOR Inhaled Oxygen Concentration - - Weight 51.3 kg (113 lb 1.5 oz) 06/08/2023 6:11 P M DIGITAL ADVISOR Height 162.6 cm (5' 4.02 ) 06/08/2023 6:11 PM CS T Body Mass Index 19.4 06/08/2023 6:11 PM DIGITAL ADVISOR Plan of Treatment Health Maintenance Due Date Last Done Comments Cervical Cancer Screening 1997 Depression Screening 1997 Regular Well Visit/Exam 18-64 06/02/2019 06/02/2018 DTaP/Tdap/Td Vaccine (6 - Td or Tdap) 01/23/2020 01/22/2010, 11/03/2001, 11/10/2000, Additional history exists Influenza Vaccine (#1) 2023 7, 01/18/2014, 02/11/2013 Varicella Vaccines Completed 11/10/2000, 11/11/1999 HPV Vaccines Completed 01/18/2014, 01/22/2010 Hepatitis C Screening Completed 01/02/2016, 013 Pneumococcal vaccine <65 Aged Out No longer eligible based on patient's age to complete this topic Procedures Procedure Name Priority Date/Time Associated Diagnosis Comments SERUM HEPATITIS C AB Routine 01/02/2016 10:57 AM CDT from Last 3 Months or Most Recently Relevant to Health Maintenance Results * Serum Hepatitis C ab (01/02/2016 10:57 AM CDT) HCV ab Negative NEG CDR HISTOR ICAL RESULTS Serum 01/02/2016 10:5 7 AM CDT Lindy Cody ASSOCIATE PROFESSOR OF LIBRARY MEDIA LAB BLOOD ORDERABLES Final R esult CDR HISTORICAL RESULTS from Last 3 Months or Most Recently Relevant to Health Maintenance Insurance Care Teams Sales Clerk Relationship Specialty Start Date End Date Faye Hood NP PCP - General 10/09/16
--- OUTSIDE RECORDS SUMMARY | 2024-05-18 08:54 | XMS_ITS | Encounter Summary ---
Author Organization [facility] Address [address] [place] [address] Phone Care Team Providers Care Rug Touch Up Painter Name Role Phone Faye Hood NP Primary Care Provider Encounter Details Date Type Department Care Team (Latest Contact Info) Description 11/13/2016 Orders Only [facility] CONVERSION Scanning, Provider Social History Tobacco Use Types Packs/Day Years Used Date Smoking Tobacco: Never Comments Unknown Sex and Gender Information Value Date Recorded Sex Assigned at Not on file Legal Sex Female 8:26 AM EMBROIDERY PATTERNMAKER Gender Identity Not on file Sexual Orientation Not on file documented as of this encounter Plan of Treatment Not on file documented as of this encounter Procedures Procedure Name Priority Date/Time Associated Diagnosis Comments OBSTETRIC/GYNECOLOGY ULTRASONOGRAPHY REPORT 11/13/2016 2:22 PM CDT documented in this encounter Results * OBSTETRIC/GYNECOLOGY ULTRASONOGRAPHY REPORT (11/13/2016 2:22 PM CDT) Anatomical Region Laterality Modality Ultrasound us Provider Scanning IMG OB US PROCEDURES Final Res ult documented in this encounter Visit Diagnoses Not on filedocumented in this encounter Care Teams Rug Touch Up Painter Relationship Specialty Start Date End Date Faye Hood NP PCP - General 10/09/16 documented as of this encounter
--- OUTSIDE RECORDS SUMMARY | 2024-05-18 08:54 | XMS_ITS | Referral Summary ---
Author Organization [facility] Address [address] [place] [address] Care Team Providers Care Seasoner Name Role Phone Faye Hood NP Primary [...] Preservative Free, Intramuscular 04/15/2016 Influenza, Unspecified 02/11/2013 Social History Tobacco Use Types Packs/Day Years Used Date Smoking Tobacco: Never Smokeless Tobacco: Never Alcohol Use Standard Drinks/Week Comments No 0 (1 standard drink = 0.6 oz pur e alcohol) [facility] Utilities Answer Date Recorded In the past 12 months has e [employer], gas, oil, or water company threatened to shut off services in your [...] often do you attend chur ch or faith services? Never 06/09/2023 Do you belong to any clubs o r organizations such as gnosticist groups, unions, fraternal or athletic groups, or [...] place to sleep or slept in a custodial (including now)? No 06/09/2023 Personal Safety Answer Date Recorded Have you ever been in or are you currently in a harmful physical or emotional relationship or is someone making you feel afraid or unsafe? 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 Not on bridgett e Last Filed Vital Signs Vital Sign Reading Time Taken Comments Blood Pressure 108/66 06/10/2023 3:25 PM ORACLE MANUFACTURING CONSULTANT Pulse 85 06/10/2023 3:25 PM ORACLE MANUFACTURING CONSULTANT Temperature 37.2 C (99 F) 06/10/2023 3:25 PM ORACLE MANUFACTURING CONSULTANT Respiratory Rate 14 06/10/2023 3:25 PM ORACLE MANUFACTURING CONSULTANT Oxygen Saturation 100% 06/10/2023 3:25 PM ORACLE MANUFACTURING CONSULTANT Inhaled Oxygen Concentration - - Weight 51.3 kg (113 lb 1.5 oz) 06/08/2023 6:11 P M ORACLE MANUFACTURING CONSULTANT Height 162.6 cm (5' 4.02 ) 06/08/2023 6:11 PM CS T Body Mass Index 19.4 06/08/2023 6:11 PM ORACLE MANUFACTURING CONSULTANT Plan of Treatment Not on file Procedures Procedure Name Priority Date/Time Associated Diagnosis Comments SERUM HEPATITIS C AB Routine 01/02/2016 10:57 AM CDT from Last 3 Months or Most Recently Relevant to Health Maintenance Results * Serum Hepatitis C ab (01/02/2016 10:57 AM CDT) HCV ab Negative NEG CDR HISTOR ICAL RESULTS Serum 01/02/2016 10:5 7 AM CDT Lindy Cody COFFEE SHOP ATTENDANT LAB BLOOD ORDERABLES Final R esult CDR HISTORICAL RESULTS from Last 3 Months or Most Recently Relevant to Health Maintenance [facility] [place] [place] [id number] [place] [address] Care Teams Seasoner Relationship Specialty Start Date End Date Faye Hood NP PCP - General 10/09/16
--- OUTSIDE RECORDS SUMMARY | 2024-05-18 08:54 | XMS_ITS | Encounter Summary ---
Author Organization [facility] Address [address] [place] [address] Phone Care Team Providers Care Java Xml Developer Name Role Phone Unknown, Notinfile Primary Care Provider Unavail able Faye Hood NP Primary Care Provider [phone] Encounter Details Date Type Department Care Team (Latest Contact Info) Description 09/29/2016 Orders Only [facility] CONVERSION Scanning, Provider Social History Tobacco Use Types Packs/Day Years Used Date Smoking Tobacco: Never Comments Unknown Sex and Gender Information Value Date Recorded Sex Assigned at Not on file Legal Sex Female 8:26 AM MEDICAL GENETICIST Gender Identity Not on file Sexual Orientation Not on file documented as of this encounter Plan of Treatment Not on file documented as of this encounter Procedures Procedure Name Priority Date/Time Associated Diagnosis Comments OBSTETRIC/GYNECOLOGY ULTRASONOGRAPHY REPORT 09/29/2016 11:42 AM CDT documented in this encounter Results * OBSTETRIC/GYNECOLOGY ULTRASONOGRAPHY REPORT (09/29/2016 11:42 AM CDT) Anatomical Region Laterality Modality Ultrasound us Provider Scanning IMG OB US PROCEDURES Final Res ult documented in this encounter Visit Diagnoses Not on filedocumented in this encounter Care Teams Java Xml Developer Relationship Specialty Start Date End Date Unknown, Notinfile PCP - General 08/08/16 10/08/16 Faye Hood, VOCATIONAL REHABILITATION CONSULTANT PCP - General 10/09/16 documented as of this encounter
--- OUTSIDE RECORDS SUMMARY | 2024-05-18 08:54 | XMS_ITS | Encounter Summary ---
Author Organization [facility] Address [address] [place] [address] Phone Care Team Providers Care Trapper Bird Name Role Phone Unknown, Notinfile Primary Care Provider Unavail able Faye Hood NP Primary Care Provider [phone] Encounter Details Date Type Department Care Team (Latest Contact Info) Description 09/24/2016 Orders Only [facility] CONVERSION Scanning, Provider Social History Tobacco Use Types Packs/Day Years Used Date Smoking Tobacco: Never Comments Unknown Sex and Gender Information Value Date Recorded Sex Assigned at Not on file Legal Sex Female 8:26 AM INDUSTRIAL HEALTH AND SAFETY PROFESSOR Gender Identity Not on file Sexual Orientation Not on file documented as of this encounter Plan of Treatment Not on file documented as of this encounter Procedures Procedure Name Priority Date/Time Associated Diagnosis Comments OBSTETRIC/GYNECOLOGY ULTRASONOGRAPHY REPORT 10/06/2016 3:53 PM CDT OBSTETRIC/GYNECOLOGY ULTRASONOGRAPHY REPORT 09/24/2016 12:16 PM CDT documented in this encounter Results * OBSTETRIC/GYNECOLOGY ULTRASONOGRAPHY REPORT (10/06/2016 3:53 PM CDT) Anatomical Region Laterality Modality Ultrasound us Provider Scanning IMG OB US PROCEDURES Final Res ult * OBSTETRIC/GYNECOLOGY ULTRASONOGRAPHY REPORT (09/24/2016 12:16 PM CDT) Anatomical Region Laterality Modality Ultrasound us Provider Scanning IMG OB US PROCEDURES Final Res ult documented in this encounter Visit Diagnoses Not on filedocumented in this encounter Care Teams Trapper Bird Relationship Specialty Start Date End Date Unknown, Notinfile PCP - General 08/08/16 10/08/16 Faye Hood, FLOOR CLEANER PCP - General 10/09/16 documented as of this encounter
--- OUTSIDE RECORDS SUMMARY | 2024-05-18 08:54 | XMS_ITS | Encounter Summary ---
Author Organization [facility] Address [address] [place] [address] Care Team Providers Care Imaging System Administrator Name Role Phone Faye Hood NP Primary Care Provider Encounter Details Date Type Department Care Team (Late st Contact Info) Description 06/03/2018 Orders Only [facility] [address] [place] [address] [address] [place] [address] Karyna Begum NP [address] [facility] [place] [address] [place], [place] [id number] Social History Tobacco Use Types Packs/Day Years Used Date Smoking Tobacco: Never Smokeless Tobacco: Never Alcohol Use Standard Drinks/Week Comments No 0 (1 standard drink = 0.6 oz pur e alcohol) Comments No Sex and Gender Information Value Date Recorded Sex Assigned at Not on file Legal Sex Female 8:26 AM ENLISTED AIRCREW/AERIAL OBSERVER/GUNNER Gender Identity Not on file Sexual Orientation Not on file 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
--- OUTSIDE RECORDS SUMMARY | 2024-05-18 08:55 | XMS_ITS | Patient Health Summary ---
Author Organization [facility] [place] Address [address] [facility] [place] [address] Care Team Providers Care Sustainability Director Name Role Phone Pcp, None Primary Care Provider Unavailabl e Note from [facility],non-owned Affiliates and Associated Physician Practices is amultiple site organization consisting of ambulatory clinics and hospital sitesin [place], [place], [place] and [place]. This disclosure is being madepursuant to the Care Everywhere program and may not contain all information available regarding this patient. Last updated 17.[facility] Allergies No known active allergies Medications * Be aware that medications may not be up to date on this document. Alwaysverify current medications with the patient. * hydrocortisone (HYTONE) 1 % ointment(Started 01/27/2014) Apply to affected area 2 times daily. * diphenhydrAMINE (BENADRYL) 25 MG tablet(Started 01/27/2014) Take 1-2 tabs by mouth every 6 hours as needed for itching * ibuprofen (MOTRIN) 600 MG tablet(Started 09/25/2020) Take 1 (one) tablet by mouth every 6 hours as needed for Pain * acetaminophen (TYLENOL) 500 MG tablet(Started 09/25/2020) Take 1 (one) tablet by mouth every 4 hours as needed for Fever or Pain Maximum allowable Acetaminophen amount = 4 Grams (4000 mg) / 24 hours. * carbamide peroxide (Debrox) 6.5 % otic solution(Started 04/25/2023) Instill 5 (five) drops to 10 (ten) drops into right ear 2 times daily Social History Tobacco Use Types Packs/Day Years Used Date Smoking Tobacco: Never Smokeless Tobacco: Never Tobacco Cessation:Counseling Given: Not Answered Alcohol Use Standard Drinks/Week Comments No 0 (1 standard drink = 0.6 oz pur e alcohol) AUDIT-C Answer Date Recorded Q1: How often do you have a drink containing alcohol? Never 04/25/2023 Q2: How many drinks containi ng alcohol do you have on a typical day when you are drinking? Patient does not drink Q3: How often do you have si x or more drinks on one occasion? Never 04/25/2023 Sex and Gender Information Value Date Recorded Sex Assigned at Not on file Gender Identity Not on file Sexual Orientation Not on file Last Filed Vital Signs Vital Sign Reading Time Taken Comments Blood Pressure 106/70 04/25/2023 9:11 AM JEWEL GAUGER Pulse 88 04/25/2023 9:11 AM JEWEL GAUGER Temperature 36.6 C (97.9 F) 04/25/2023 9:11 AM JEWEL GAUGER Respiratory Rate 16 04/25/2023 9:11 AM JEWEL GAUGER Oxygen Saturation 99% 04/25/2023 9:11 AM JEWEL GAUGER Inhaled Oxygen Concentration - - Weight 57.5 kg (126 lb 12.2 oz) 04/25/2023 9:11 AM JEWEL GAUGER Height 164 cm (5' 4.57 ) 04/25/2023 9:11 AM JEWEL GAUGER Body Mass Index 21.38 04/25/2023 9:11 AM JEWEL GAUGER Procedures * SARS-COV-2 (COVID-19)+INFLU A+B PCR RAPID(Performed 09/25/2020) * CULTURE URINE(Performed 02/26/2016) * TRICHOMONAS VAGINALIS YAW(Performed 02/26/2016) * NEISSERIA GONORRHOEAE YAW(Performed 02/26/2016) * CHLAMYDIA TRACHOMATIS YAW(Performed 02/26/2016) * HCG URINE QUALITATIVE - POCT (IP) [facility](Performed 02/26/2016) * URINALYSIS REFLEX TO MICROSCOPIC NO CULTURE(Performed 02/26/2016) Results * (ABNORMAL) SARS-COV-2 (COVID-19)+INFLU A+B PCR RAPID (09/25/2020 6:33 PM CDT) COVID-19 PCR Detected(AA) Not detected 09/26/19 7:04 PM CDT [facility] Influenza A Rapid YAW Not Detected Not Detected 09/25/2020 7:04 PM [facility] Influenza B YAW Rapid Not Detected Not Detected 09/25/2020 7:04 PM T [facility] Microbiology SPECIMEN FROM NASOPHARYNGEAL STRUCTURE / Unknown Collection / Unknown 09/25/2020 6:33 PM CDT 09/25/2020 6:42 PM CDT [facility] - 09/25/2020 7:04 PM CDT Samples with high concentrations of SARS-CoV-2 RNA may result in false negative influenza testing if a low concentration of influenza virus is present. Influenza A and Influenza B negative results should be considered presumptive negative in samples with a positive SARS-CoV-2 result and influenza testing should be performed by another method if clinically indicated. Influenza assay performed by Nucleic Acid Amplification. Results do not exclude the possibility of a mixed viral infection. NOTE: Detecting and identifying specific viral nucleic acids from individuals exhibiting signs and symptoms of respiratory infection aids in the diagnosis of respiratory infection, if used in conjunction with other clinical and laboratory findings. The results of this test should not be used as the sole basis for diagnosis, treatment, or patient management decisions. This nucleic acid amplification assay performance was validated by [facility]. This test has been authorized by the Food and Drug administration (FDA)under an Emergency Use Authorization (EUA). This test has been validated in accordance with the FDA's guidance document Policy for Diagnostic Testing in Laboratories Certified to perform High Complexity Testing under CLIA prior to Emergency Use Authorization for Coronavirus Disease-2019 during the Public Health Emergency issued on June 04, 2019. FDA independent review of this validation is pending. This test is only authorized for the duration of time the declaration that circumstances exist justifying the authorization of emergency use of in vitro diagnostic tests for detection of SARS-CoV-2 virus and/or diagnosis of COVID-19 infection under section 564(b)(1) of the Act, 21 U.S.C 360bbb-3 (b)(1), unless the authorization is terminated or revoked sooner. Fact Sheets for this EUA assay are available upon request. Reanna Marshall TRAFFIC ENUMERATOR-PROFESSIONAL SERVICES SPECIALIST LAB - MICROBI OLOGY ORDERABLES [facility] [address] [place] [address], [facility] [phone] * (ABNORMAL) CULTURE URINE (02/26/2016 11:22 PM JEWEL GAUGER) Culture Urine ESCHERICHIA COLI(A) [facility] Comment:1,000,000 CFU/ML Esc herichia Coli Urine specimen (specimen) URINE / Unknown 02/26/2016 11:22 PM JEWEL GAUGER 02/26/2016 11:26 PM JEWEL GAUGER Narrative [facility] - 02/28/2016 3:21 PM JEWEL GAUGER Specimen Type->Urine Organism Antibiotic Method Susceptibility Escherichia coli Amikacin SUSCEPTIBILITY <=2: Sensitive Escherichia coli Ampicillin SUSCEPTIBILITY >=32: Resistant Escherichia coli Ampicillin-sulbactam SUSCEPTIBILITY >=32: Resistant Escherichia coli Cefazolin SUSCEPTIBILITY <=4: Sensitive Escherichia coli Cefepime SUSCEPTIBILITY <=1: Sensitive Escherichia coli Ceftazidime SUSCEPTIBILITY <=1: Sensitive Escherichia coli Ceftriaxone SUSCEPTIBILITY <=1: Sensitive Escherichia coli Ertapenem SUSCEPTIBILITY <=0.5: Sensitive Escherichia coli Gentamicin SUSCEPTIBILITY <=1: Sensitive Escherichia coli Imipenem SUSCEPTIBILITY <=0.25: Sensitive Escherichia coli Levofloxacin SUSCEPTIBILITY <=0.12: Sensitive Escherichia coli Nitrofurantoin SUSCEPTIBILITY <=16: Sensitive Escherichia coli Piperacillin-tazobactam SUSCEPTIBILIT Y <=4: Sensitive Escherichia coli Tobramycin SUSCEPTIBILITY <=1: Sensitive Escherichia coli Trimethoprim-sulfamethoxazole SUSCEPT IBILITY <=20: Sensitive Escherichia coli Extended-Spectrum Beta-Lactamase SUSC EPTIBILITY Neg: - Cyn Huffman MD LAB - MICROBIOLOGY O RDERABLES [facility] [address] [place] [address], [facility] [phone] * NEISSERIA GONORRHOEAE YAW (02/26/2016 11:18 PM JEWEL GAUGER) Neisseria gonorrhoeae YAW Accession No: [id number] Specimen: Swab Reference: [id number] Test: Neisseria Gonorrhoeae, Nucleic Acid Amplification Test Interpretation: Neisseria gonorrhoeae: Not Detected Reference Range: Not Detected Comment: This analysis was performed using an U.S. FDA approved test methodology (Gen-Probe Aptima Combo 2). Test performed at [facility], [address] [place] [address] This case has been personally reviewed and interpreted by the attending (teaching) pathologist. Final Diagnosis performed by Lino Gutiérrez PHD. Electronically signed 03/03/2016 [facility]) Other (qualifier value) (Endocervical) 02/26/2016 11:18 PM JEWEL GAUGER 02/26/2016 11:26 PM JEWEL GAUGER Cyn Huffman MD LAB - MICROBIOLOGY O EMELINA Performing Organization Address [facility] de Phone Number [facility]) * TRICHOMONAS VAGINALIS YAW (02/26/2016 11:18 PM JEWEL GAUGER) Trichomonas vaginalis by YAW Accession No: [id number] Specimen: Swab Reference: [id number] Test: Trichomonas vaginalis, Nucleic Acid Amplification Test Interpretation: Trichomonas vaginalis: Not Detected Reference Range: Not Detected Comment: This analysis was performed using an [place] FDA approved test methodology (Gen-Probe Aptima Trichomonas vaginalis Assay). Test performed at [facility], [address] [place] [address] This case has been personally reviewed and interpreted by the attending (teaching) pathologist. Final Diagnosis performed by Lino Gutiérrez PHD. Electronically signed 03/03/2016 [facility]) Other (qualifier value) (Endocervical) 02/26/2016 11:18 PM JEWEL GAUGER 02/26/2016 11:26 PM JEWEL GAUGER Cyn Huffman MD LAB - MICROBIOLOGY O EMELINA Performing Organization Address [facility] Co de Phone Number [facility]) * CHLAMYDIA TRACHOMATIS YAW (02/26/2016 11:18 PM JEWEL GAUGER) Chlamydia trachomatis YAW Accession No: [id number] Specimen: Swab Reference: [id number] Test: Chlamydia Trachomatis, Nucleic Acid Amplification Test Interpretation: Chlamydia trachomatis: Not Detected Reference Range: Not Detected Comment: This analysis was performed using an U.S. FDA approved test methodology (Gen-Probe Aptima Combo 2). Test performed at [facility], [address] [place] [address] This case has been personally reviewed and interpreted by the attending (teaching) pathologist. Final Diagnosis performed by Lino Gutiérrez PHD. Electronically signed 03/03/2016 [facility] ([facility]) Other (qualifier value) (Endocervical) 02/26/2016 11:18 PM JEWEL GAUGER 02/26/2016 11:26 PM JEWEL GAUGER Cyn Huffman MD LAB - MICROBIOLOGY O RDERABLES Performing Organization Address City/[facility]/ZIP Co de Phone Number [facility] LAB (BEAKER) * HCG URINE QUALITATIVE - POCT (IP) [facility] (02/26/2016 10:39 PM JEWEL GAUGER) Test Urine negative [facility] Urine specimen (specimen) 02/26/2016 10:39 PM JEWEL GAUGER Anders Monsivais MD LAB - POINT OF CARE ORDERABLES Performing Organization Address [facility] Co de Phone Number [facility] * (ABNORMAL) URINALYSIS REFLEX TO MICROSCOPIC NO CULTURE (02/26/2016 10:23 PM JEWEL GAUGER) Color UA Yellow Straw, Yellow, Colorless, Light Yellow [facility] Clarity UA Hazy(A) Clear [facility] Specific [place] UA 1.019 1.001 - 1.030 [facility] pH UA 6.5 5.0 - 8.0 [facility] Protein UA 200(A) <=20 mg/dL [facility] Glucose UA Negative Negative mg/dL [facility] Ketone UA Negative Negative mg/dL [facility] Bilirubin UA Negative Negative mg/dL [facility] Blood UA Large(A) Negative [facility] Nitrite UA Positive(A) Negative [facility] Leukocyte Esterase Large(A) Negative [facility] Urobilinogen UA <2.0 <2.0 mg/dL [facility] RBC UA >100(H) 0 - 8 /HPF [facility] WBC UA >100(H) 0 - 2 /HPF [facility] Bacteria UA Moderate(A) Rare, Occasional, None /HPF [facility] Squamous Epithelial Cells UA 15(H) 0 - 1 /HPF [facility] Mucus UA Many(A) None /LPF [facility] Urine specimen (specimen) 02/26/2016 10:23 PM JEWEL GAUGER 02/26/2016 10:31 PM JEWEL GAUGER oJ Lambert MD LAB - URINALYSIS ORD ERABLES [facility] [address] [phone] Care Teams Sustainability Director Relationship Specialty Start Date End Date Pcp, None [address] [place] [address] PCP - General 04/25/23
--- OUTSIDE RECORDS SUMMARY | 2024-05-18 08:55 | XMS_ITS | Continuity of Care Document ---
Author Organization [facility] Address [address] [place] [address] Phone Care Team Providers Care Glass Installer Name Role Phone Unavailable Unavailable Unavailable Luke DENTON, Ese Unavailable Unavailable Allergies, Adverse Reactions, Alerts Substance Reaction Status Criticality No Known Allergies Active No Inform ation Medications Medication Instructions Dosage Effective Dates (start - stop) Status Comments nystatin 100,000 unit/gram topical cream apply by topical route 2 times every day to the affected area(s) 0.00 - Active Medrol (Chris) 4 mg tablets in a dose pack take by oral route as per product directions - Active Cipro 500 mg tablet take 1 tablet by ora l route every 12 hours for 7 days - Active Diflucan 150 mg tablet take 1 tablet by oral route once once. May repeat in 3 days if still with symptoms. 150 MG - Active Procedures Procedure Date OFFICE/OUTPATIENT VISIT, EST Alcohol and/or drug screening 9 Urinalysis, Auto, w/o Scope URINE TEST, BY VISUAL COLOR CO MPARISON METHODS Injection, ceftriaxone sodium, per 250 m g AZITHROMYCIN DIHYDRATE, ORAL, CAPSULES/P OWDER, 1 GRAM Prescription Drug, Oral, Non-Chemotherap eutic, NOS OFFICE/OUTPATIENT VISIT, EST URINE TEST, BY VISUAL COLOR CO MPARISON METHODS Urinalysis, Auto, w/o Scope OFFICE OUTPT EST 25 MIN Urinalysis, Auto, w/o Scope URINE TEST, BY VISUAL COLOR CO MPARISON METHODS Voided Encounter OFFICE/OUTPATIENT VISIT, EST Alcohol and/or drug screening 8 Urinalysis, Auto, w/o Scope URINE TEST, BY VISUAL COLOR CO MPARISON METHODS OFFICE/OUTPATIENT VISIT, NEW Alcohol and/or drug screening 5 URINE TEST, BY VISUAL COLOR CO MPARISON METHODS Urinalysis, Auto, w/o Scope Advance Directives Directive Yes / No Effective Date File Name No Information Encounters Encounter Description Practice Location Reason(s) For Visit Diagnoses Date Provider Providers Copied on Encounter [facility], [address], [place], [place], [id number] , tel: [phone] [facility] No Information 0 No Information Consulting Provider: Ese Butler, [address], [place], [address]. [phone] OFFICE/OUTPA TIENT VISIT, EST [facility], [address], [place], [place], [id number] , [place] tel: [phone] [facility] bacteria infection (chief complaint) DysuriaAllergic reaction, initial encounterEncounte r for screening for other disorderEncounter for screening, unspecified 9 Hernán Arredondo. [address], [place], [place], [address], . tel:[phone] Referring Provider: Arnulfo Jim, [address], [place], [address]. [phone] OFFICE/OUTPA TIENT VISIT, EST [facility], [address], [place], [place], [address] , tel: [phone] [facility] bacterial infection (chief complaint) VaginitisEncounte r for sexually transmitted disease screeningEncounte r for screening, unspecified 8 Deng Arita. [address], [place], [place], [address], . tel:[phone] Referring Provider: Lyla Vilchis, [address], [place], [address]. tel:[phone] [facility], [address], [place], [place], [address] , tel: [phone] Urgent Care Other gonococcal infection 8 Hernán Arredondo. [address], [place], [place], [address], . tel:[phone] OFFICE OUTPT EST 25 MIN [facility], [address], [place], [place], [address] , tel: [phone] Urgent Care UTI (chief complaint) Encounter for sexually transmitted disease screeningEncounte r for screening, unspecified 8 No Information [facility], [address], [place], [place], [address] , tel: [phone] [facility] No Information 8 Rio Kitchen. [address], [place], [place], [address]. tel:[phone] Referring Provider: Imtiaz Pate, [address], [place], [address]. tel:[phone] OFFICE/OUTPA TIENT VISIT, EST [facility], [address], [place], [place], [address] , tel: [phone] Urgent Care vaginal bleed (chief complaint) Menorrhagia NOSEncounter for screening for other disorderEncounter for screening, unspecified 8 No Information OFFICE/OUTPA TIENT VISIT, NEW [facility], [address], [place], [place], [address] , tel: [phone] [facility] yeast infection (chief complaint) VaginitisScreenin g for alcoholismLeukorr hea, not specified as infective 5 No Information Referring Provider: Arnulfo Jim, [address], [place], [address]. tel:[phone] Family History Family Member Type Diagnosis Age At Onset No Information Payers Payer name Insurance type Covered republican ID Authoriza tion(s) No Information Social History Type Description Quantity Date Captured Comments Alcohol Use Details Unknown Caffeine Use Details Unknown Tobacco Use Status No Information Smoking Status No Information Sex Female Sexual Orientation Straight or heterosexual Mar Gender Identity Female Chief Complaint And Reason For Visit No Information Reason For Referral Reason For Referral No Information History Of Present Illness Encounter Date Complaint History Of Abril nt Illness bacteria infection Thinks having allergic reaction to her soap with acute onset of tingling last night and worsening itchy rash with swelling of her external genitalia. Denies actual rash or vaginal discharge. No other skin irritation noted. Itching and irritation worse this AM prompting her visit with us today. Also notes acute onset of dysuria this AM also with noted darker colored urine. No foul urine or vaginal odors. No fever, chills, back or flank pain, abd pain, emesis, diarrhea. bacterial infection c/o vulvar i tching, irritation, burning, and swellingthin white discharge; no change in amt or color from normal discharge per ptdenies malodordenies pelvic pain, dysuria, N/V, F/Cseen in UC 03/10; + GC; returned for shot of rocephinpartner wasn't treated; reports had sex w/same partner this past weekend; used condomdenies oral sexfeels like yeast infection per pt UTI Pain scale: 0/10 . Associated symptoms include frequency and vaginal discharge. Pertinent negatives include abdominal pain, dysuria, flank pain, pelvic pain, pressure or urgency. Additional information: pt drinks no water, only soda. has noticed increased vaginal discharge/no odor or itch or irritation. vaginal bleed The symptoms beg an 6 weeks ago. 20 yr old bf aa is seen for c/o vaginal bleed states was started on depo shots for control in may is mother of two children , states was to come off on august but her she has been experiencing bleeding since then felt she may have uti however no frequency reported no dizziness or tachycardia no abdominal cramping yeast infection Patient is a ple asant, fit 19 y/o BF here with 20 month old child c/o D/C and odor. She claims she has had this for about a week and think its a yeast infection. Functional Status Date Functional Assessmen t No Information Instructions Date Instruction Additional Infor jerome You were treated tod ay for Chlamydia, Gonorrhea, and TrichomoniasisMedications received today: Azithromycin 1gm PO; Flagyl 2gm PO; Rocephin 250mg IMAvoid all sexual contact for 14 days; not even with condomsAvoid alcohol for 24 hours after taking Flagyl Related to Vaginitis Assessments Type Assessment Date No Information Patient Care Teams Name Effective Dates (start - stop) Status Members No Information
--- OUTSIDE RECORDS SUMMARY | 2024-05-18 08:55 | XMS_ITS | Clinical Summary ---
Author Organization [facility] Address [address] [facility] [place] [address] Care Team Providers Care Lvn Lpn Name Role Phone Pcp, None Primary Care Provider Unavailabl e Source Comments [facility],non-owned Affiliates and Associated Physician Practices is amultiple site organization consisting of ambulatory clinics and hospital sitesin [place], [place], [place] and [place]. This disclosure is being madepursuant to the Care Everywhere program and may not contain all information available regarding this patient. Last updated 17.[facility] Allergies No known active allergies Medications * Be aware that medications may not be up to date on this document. Alwaysverify current medications with the patient. Medication Sig Dispensed Refills Start Date End Date Status hydrocortisone (HYTONE) 1 % ointment Apply to affected area 2 times daily. 30 g 0 01/27/2014 Active diphenhydrAMINE (BENADRYL) 25 MG tablet Take 1-2 tabs by mouth every 6 hours as needed for itching 30 Tab 0 01/27/2014 Active ibuprofen (MOTRIN) 600 MG tablet Take 1 (one) tablet by mouth every 6 hours as needed for Pain 30 tablet 09/25/2020 Active acetaminophen (TYLENOL) 500 MG tablet Take 1 (one) tablet by mouth every 4 hours as needed for Fever or Pain Maximum allowable Acetaminophen amount = 4 Grams (4000 mg) / 24 hours. 30 tablet 09/25/2020 Active carbamide peroxide (Debrox) 6.5 % otic solution Instill 5 (five) drops to 10 (ten) drops into right ear 2 times daily 15 mL 04/25/2023 Active Social History Tobacco Use Types Packs/Day Years [...] Comments Blood Pressure 106/70 04/25/2023 9:11 AM FUR BLOWING MACHINE OPERATOR Pulse 88 04/25/2023 9:11 AM FUR BLOWING MACHINE OPERATOR Temperature 36.6 C (97.9 F) 04/25/2023 9:11 AM FUR BLOWING MACHINE OPERATOR Respiratory Rate 16 04/25/2023 9:11 AM FUR BLOWING MACHINE OPERATOR Oxygen Saturation 99% 04/25/2023 9:11 AM FUR BLOWING MACHINE OPERATOR Inhaled Oxygen Concentration - - Weight 57.5 kg (126 lb 12.2 oz) 04/25/2023 9:11 AM FUR BLOWING MACHINE OPERATOR Height 164 cm (5' 4.57 ) 04/25/2023 9:11 AM FUR BLOWING MACHINE OPERATOR Body Mass Index 21.38 04/25/2023 9:11 AM FUR BLOWING MACHINE OPERATOR Plan of Treatment Health Maintenance Due Date Last Done Comments PAP SMEAR 1997 HIV SCREENING 2012 HPV VACCINE (1 - 3-dose series) 2012 HEPATITIS C SCREENING 05/27/2015 DTAP/TDAP/TD VACCINES (1 - Tdap) 2016 HEPATITIS B VACCINE (1 of 3 - 19+ 3-dose series) 2016 COVID-19 VACCINE ( - 2023-2 5 season) 2023 INFLUENZA VACCINE (#1) 2023 7, 01/18/2014, 02/11/2013 DEPRESSION SCREENING 04/06/2024 ZOSTER VACCINE (1 of 2) 2047 HIB VACCINE Aged Out No longer eligi ble based on patient's age to complete this topic MENINGOCOCCAL (Group B) VACCINE Aged Out No longer eligible b ased on patient's age to complete this topic MENINGOCOCCAL VACCINE Aged Out No ernestina ivon eligible based on patient's age to complete this topic PNEUMOCOCCAL VACCINE Aged Out No long er eligible based on patient's age to complete this topic Care Teams Lvn Lpn Relationship Specialty Start Date End Date Pcp, None [address] [place] [address] PCP - General 04/25/23
--- OUTSIDE RECORDS SUMMARY | 2024-05-18 08:55 | XMS_ITS | Referral Summary ---
Author Organization [facility] Address [address] [place] [address] Care Team Providers Care Treasury Associate Name Role Phone Pcp, None Primary Care Provider Unavailabl e Source Comments [facility],non-owned Affiliates and Associated Physician Practices is amultiple site organization consisting of ambulatory clinics and hospital sitesin [place], [place], [place] and [place]. This disclosure is being madepursuant to the Care Everywhere program and may not contain all information available regarding this patient. Last updated 17.[facility] Allergies No known active allergies Medications * [...] Comments Blood Pressure 106/70 04/25/2023 9:11 AM CARTOON ANIMATOR Pulse 88 04/25/2023 9:11 AM CARTOON ANIMATOR Temperature 36.6 C (97.9 F) 04/25/2023 9:11 AM CARTOON ANIMATOR Respiratory Rate 16 04/25/2023 9:11 AM CARTOON ANIMATOR Oxygen Saturation 99% 04/25/2023 9:11 AM CARTOON ANIMATOR Inhaled Oxygen Concentration - - Weight 57.5 kg (126 lb 12.2 oz) 04/25/2023 9:11 AM CARTOON ANIMATOR Height 164 cm (5' 4.57 ) 04/25/2023 9:11 AM CARTOON ANIMATOR Body Mass Index 21.38 04/25/2023 9:11 AM CARTOON ANIMATOR Plan of Treatment Not on file Care Teams Treasury Associate Relationship Specialty Start Date End Date Pcp, None [address] [place] [address] PCP - General 04/25/23
[2024-05-18 08:57] LABS: Basophils Percent Auto 0.5 % (0.2-1.2); Eosinophils Absolute Auto 0.1 K/mm3 (0-0.3); Eosinophils Percent Auto 1.6 % (0-4.4); Hematocrit 36.3 % (37.0-47.0); Hemoglobin 11.4 g/dL (12.0-15.0); Immature Granulocyte Absolute 0.01 K/mm3 (0.00-0.031); Immature Granulocyte Percent A 0.2 % (0-0.5); Lymphocytes Absolute Auto 2.05 K/mm3 (0.9-3.2); Lymphocytes Percent Auto 35.7 % (18.3-44.2); Mean Corpuscular HGB Conc 31.4 g/dl (32-36); Mean Corpuscular Hemoglobin 26.8 pg (26-34); Mean Corpuscular Volume 85.4 fl (80-100); Mean Platelet Volume 9.6 fl (7.4-10.4); Monocytes Absolute Auto 0.7 K/mm3 (0.1-0.6); Monocytes Percent Auto 12.5 % (2.6-8.5); Neutrophils Absolute Auto 2.9 K/mm3 (1.3-6.7); Neutrophils Percent Auto 49.5 % (45.5-73.1); Platelet Count Result 308 k/mm3 (150-375); Red Blood Count 4.25 M/mm3 (4.2-5.4); Red Cell Distribution Width 13.3 % (11.5-14.5); White Blood Count 5.8 K/mm3 (4.5-10.0)
[2024-05-18 09:10] LABS: Alanine Aminotransferase 19 U/L (6-35); Albumin Level 3.7 g/dL (3.5-5.1); Alkaline Phosphatase 120 U/L (38-126); Anion Gap 9 mmol/L (4-12); Aspartate Amino Transferase 31 U/L (14-36); Bilirubin,Total 0.4 mg/dL (0.2-1.3); Blood Urea Nitrogen 13 mg/dL (7-17); Carbon Dioxide 25 mmol/L (22-30); Chloride 105 mmol/L (98-107); Estimated CRCL calculation 92 ml/min; Estimated Glomerular Filt Rate > 60; Glucose 94 mg/dL (65-110); Lipase 62 U/L (23-300); Potassium 3.6 mmol/L (3.4-5.0); Sodium 139 mmol/L (137-145)
[2024-05-18 09:21] LABS: Troponin I < 0.012 ng/mL (0.000-0.034)
--- NOTE | 2024-05-18 09:38 | ED.CHESTPAIN ---
HPI - Chest Pain General Chief Complaint: Chest Pain Stated Complaint: the left side of my body hurts Time Seen by Provider: 05/18/24 08:57 Source: patient Mode of arrival: ambulatory Limitations: no limitations History of Present Illness HPI narrative: Patient is a 28-year-old female who presents the ED with report of left side pain. Patient reports having diffuse pain throughout her left-sided chest, left-sided body, left arm over the last few days. States pain became worse yesterday into today. Pain is worse with movement and deep inspiration. She has been taking Aleve without improvement. Reported feeling mildly short of breath yesterday. She also reports mild cough and runny nose. Denies fevers. Denies lower extremity pain or swelling. Denies nausea, vomiting. Related Data Home Medications ?Medication ?Instructions ?Recorded ?Confirmed ?Last Taken ?Type ferrous sulfate 325 mg (65 mg 325 mg PO DAILY 12/29/23 12/29/23 3 Days Ago History iron) tablet (FeroSul) ~12/26/23 vit no.95-ferrous 28 tablet PO DAILY 12/29/23 12/29/23 3 Days Ago History fumarate 28 mg-folic acid 800 mcg ~12/26/23 tablet () Allergies Allergy/AdvReac Type Severity Reaction Status Date / Time No Known Allergies Allergy Verified 05/18/24 08:39 Review of Systems Review of Systems: All systems reviewed & are unremarkable except as noted in HPI. All systems reviewed & are unremarkable except as noted in HPI and below PMFSH Past Medical History Medical History IUP (intrauterine ), incidental Social History Social History Smoking status: Never smoker Second hand tobacco smoke exposure: No Do You Feel Safe in your Home?: Yes Lack of Transportation: No Lack of Food: Never True Current Housing: I Have Housing Concerned About Future Housing: No Difficulty Paying Gas/Electric Bills: No Difficulty Paying for Meds: No Currently Unemployed: No Education: High School Diploma/GED Difficulty w/ Childcare or Family Care: No Spiritual care concerns: No Exam Narrative: GENERAL: Well appearing, well-nourished, non-toxic, in no acute distress. HEAD: Normocephalic, atraumatic. RESPIRATORY: Airway patent, respirations nonlabored. Clear to auscultation bilaterally, no rales, rhonchi, wheezing. No focal lung sounds. CARDIOVASCULAR: Regular rate and rhythm without murmurs, rubs, or gallops. ABDOMINAL: Soft, no tenderness throughout abdomen, nondistended. Normoactive BS. MUSCULOSKELETAL: Moves all extremities. No gross deformities. Discomfort reported with simple movements on ED stretcher, but no significant reproducible chest wall tenderness, tenderness along ribs or throughout LUE. Full ROM of extremities. SKIN: Warm, dry, normal color. NEURO: A&O X3. Speech clear. Steady gait. No ataxic movements. No focal neurologic deficits. Sensation intact. PSYCHIATRIC: Appropriate mood and affect. Normal interaction. Course Vital Signs Vital signs: Vital Signs Temperature 97.5 F L 05/18/24 08:35 Pulse Rate 72 05/18/24 08:35 Respiratory Rate 16 05/18/24 08:35 Blood Pressure 117/78 05/18/24 08:35 Pulse Oximetry 100 05/18/24 08:35 Oxygen Delivery Room Air 05/18/24 08:35 Temperature 97.5 F L 05/18/24 08:35 Pulse Rate 69 05/18/24 10:04 Respiratory Rate 16 05/18/24 10:04 Blood Pressure 130/87 05/18/24 10:04 Pulse Oximetry 96 05/18/24 10:04 Oxygen Delivery Room Air 05/18/24 08:53 MDM - Chest Pain MDM Narrative Medical decision making narrative: Patient presented to ED with several day history of left side pain. Vital signs are stable upon arrival. Patient is in no acute distress. Symptoms seem most consistent with musculoskeletal etiology versus viral syndrome. Patient does report recent URI symptoms. Pain is also worse with movement. Will give pain control and re-evaluate. EKG is without ischemic changes. Troponin is undetectable. Laboratory studies are otherwise unremarkable. D-dimer is also within normal limits. Viral swabs negative. Chest x-ray is clear. Patient given Flexeril and Tylenol in the ED. On re-evaluation, she is reporting slight improvement. Discussed overall reassuring workup, likelihood of musculoskeletal etiology verses viral syndrome/myalgias. Discussed further management of such. Will prescribe short course of muscle relaxers for home use. Will also prescribe lidocaine patches. Recommended follow-up with PCP for further evaluation. Given return precautions. Patient agrees with plan. Discharged in stable condition. Medical Records Data Attestation: I reviewed the patient's medical records. Lab Data Attestation: I reviewed the patient's lab results. 05/18/24 08:49 05/18/24 08:49 Labs: Lab Results 05/18/24 05/18/24 Range/Units 08:49 09:41 WBC 5.8 (4.5-10.0) K/mm3 RBC 4.25 (4.2-5.4) M/mm3 Hgb 11.4 L (12.0-15.0) g/dL Hct 36.3 L (37.0-47.0) % MCV 85.4 (80-100) fl MCH 26.8 (26-34) pg MCHC 31.4 L (32-36) g/dl RDW 13.3 (11.5-14.5) % Plt Count 308 (150-375) k/mm3 MPV 9.6 (7.4-10.4) fl Immature Gran % (Auto) 0.2 (0-0.5) % Neut % (Auto) 49.5 (45.5-73.1) % Lymph % (Auto) 35.7 (18.3-44.2) % [place] % (Auto) 12.5 H (2.6-8.5) % Eos % (Auto) 1.6 (0-4.4) % Baso % (Auto) 0.5 (0.2-1.2) % Lymph # (Auto) 2.05 (0.9-3.2) K/mm3 [place] # (Auto) 0.7 H (0.1-0.6) K/mm3 Eos # (Auto) 0.1 (0-0.3) K/mm3 Baso # (Auto) 0.0 (0.0-0.1) K/mm3 Abs Immat Gran (auto) 0.01 (0.00-0.031) K/mm3 Absolute Neuts (auto) 2.9 (1.3-6.7) K/mm3 Absolute Nucleated RBC 0.000 (0.0-0.012) K/mm3 Nucleated RBC % 0.0 (0.0-0.2) % PT 14.0 (11.1-14.7) Seconds INR 1.0 APTT 34.0 (22.3-36.8) Seconds D-Dimer < 0.27 (<0.48) ug/mL Sodium 139 (137-145) mmol/L Potassium 3.6 (3.4-5.0) mmol/L Chloride 105 (98-107) mmol/L Carbon Dioxide 25 (22-30) mmol/L Anion Gap 9 (4-12) mmol/L BUN 13 (7-17) mg/dL Creatinine 0.66 L (0.7-1.0) mg/dL Estim Creat Clear Calc 92 ml/min Estimated GFR > 60 (59 - ) Glucose 94 (65-110) mg/dL Calcium 9.0 (8.4-10.2) mg/dL Total Bilirubin 0.4 (0.2-1.3) mg/dL AST 31 (14-36) U/L ALT 19 (6-35) U/L Alkaline Phosphatase 120 (38-126) U/L Troponin I < 0.012 (0.000-0.034) ng/mL Total Protein 7.0 (6.3-8.2) g/dL Albumin 3.7 (3.5-5.1) g/dL Lipase 62 (23-300) U/L Influenza A (RT-PCR) Negative (Negative) Influenza B (RT-PCR) Negative (Negative) RSV (RT-PCR) Negative (Negative) SARS-CoV-2 RNA (RT-PCR) Negative (Negative) Imaging Data Attestation: I personally reviewed and interpreted this imaging study as follows: Radiologist's impression: ITS Impressions Chest X-Ray 05/18/24 09:09 IMPRESSION: 1. No acute cardiopulmonary disease. ECG Data EKG #1: Attestation: I personally reviewed and interpreted this ECG as follows: ECG completion date: 05/18/24 ECG completion time: 08:46 EKG Interpretation: normal rate (67), sinus rhythm (Sinus arrhythmia) and non-specific ST changes Discharge Plan Discharge Clinical Impression: Left-sided chest wall pain, Myalgia Upper respiratory infection Qualifiers: URI type: unspecified URI Qualified Code(s): J06.9 - Acute upper respiratory infection, unspecified Patient Disposition: Home, Self-Care Condition: Stable Instructions: Antibiotic Form, Pleurisy (ED), Viral Syndrome (ED), Musculoskeletal Pain (ED), Chest Wall Pain (ED) Additional Instructions: Your workup here was reassuring. It is possible you may have an upper respiratory infection causing body/muscle aches. Continue Tylenol and Ibuprofen for discomfort and/or fevers. You may also apply lidocaine patches to areas of pain. Take muscle relaxers as needed and prescribed. Recommend taking these at night as they may cause sedation. Do not drive, operate heavy machinery, drink alcohol while on muscle relaxers as this may cause further sedation. Recommend [id number]-imugysp cough and cold medicines for symptom relief as needed, Delsym, Mucinex, DayQuil, NyQuil, Sudafed, Robitussin, TheraFlu. Follow with primary care doctor for further evaluation. Return to the ED if you experience worsening or severe pain, difficulty breathing, unable to keep down food or drink, persistent fevers, or any other symptoms of concern. Patient Language: Luxembourgish Prescriptions: New lidocaine 5 % adhesive patch,medicated 1 patch topical DAILY Qty: 15 0RF Rx Instructions: leave on most painful area for up to 12 hrs cyclobenzaprine 5 mg tablet 5 mg PO TID PRN (Reason: muscle spasm) Qty: 15 0RF No Action PNV cmb#95-ferrous fumarate-FA [] 28 mg iron- 800 mcg tablet 28 tablet PO DAILY ferrous sulfate [FeroSul] 325 mg (65 mg iron) tablet 325 mg PO DAILY acetaminophen 325 mg Tablet 650 mg PO Q6H PRN (Reason: Mild Pain (1-3) Or Headache) Qty: 60 0RF docusate sodium 100 mg Capsule 100 mg PO BID PRN (Reason: Constipation) Qty: 60 0RF ibuprofen 600 mg Tablet 600 mg PO Q6H PRN (Reason: Cramping) Qty: 40 0RF Follow-up/Referrals: UNKNOWN,DOCTOR [Primary Care Provider] - Time of Disposition: 10:53
[2024-05-18] MEDS: CYCLOBENZAPRINE HCL 5 MG TABLET PO (09:44)
[2024-05-18] MEDS: ACETAMINOPHEN 500 MG TABLET 1000 MG PO (09:44)
[2024-05-18 09:52] LABS: D Dimer < 0.27 ug/mL (<0.48)
[2024-05-18 10:04] VITALS: BP 130/87; PULSE 69; RESP 16; O2SAT 96
[2024-05-18 10:20] LABS: Influenza A QL RT-PCR Negative (Negative); Influenza B QL RT-PCR Negative (Negative); RSV RNA, RT-PCR Negative (Negative); SARS-CoV-2 RNA PCR Negative (Negative)
--- OUTSIDE RECORDS SUMMARY | 2024-05-18 10:33 | XMS_ITS | Encounter Summary ---
Author Organization [facility] Address [address] [place] [address] Phone Care Team Providers Care Reed Press Feeder Name Role Phone Faye Hood NP Primary Care Provider Encounter Details Date Type Department Care Team (Latest Contact Info) Description 11/13/2016 Orders Only [facility] CONVERSION Scanning, Provider Social History Tobacco Use Types Packs/Day Years Used Date Smoking Tobacco: Never Comments Unknown Sex and Gender Information Value Date Recorded Sex Assigned at Not on file Legal Sex Female 8:26 AM DIRECTOR OF CONVENTION SERVICES Gender Identity Not on file Sexual Orientation [...] on filedocumented in this encounter Care Teams Reed Press Feeder Relationship Specialty Start Date End Date Faye Hood NP PCP - General 10/09/16 documented as of this encounter
--- OUTSIDE RECORDS SUMMARY | 2024-05-18 10:33 | XMS_ITS | Encounter Summary ---
Author Organization [facility] Address [address] [place] [address] Phone Care Team Providers Care Concrete Paving Machine Operator Name Role Phone Unknown, Notinfile Primary Care Provider Unavail able Faye Hood NP Primary Care Provider Encounter Details Date Type Department Care Team (Latest Contact Info) Description 09/29/2016 Orders Only [facility] CONVERSION Scanning, Provider Social History Tobacco Use Types Packs/Day Years Used Date Smoking Tobacco: Never Comments Unknown Sex and Gender Information Value Date Recorded Sex Assigned at Not on file Legal Sex Female 8:26 AM FORESTRY ADVISER Gender Identity Not on file Sexual Orientation [...] on filedocumented in this encounter Care Teams Concrete Paving Machine Operator Relationship Specialty Start Date End Date Unknown, Notinfile PCP - General 08/08/16 10/08/16 Faye Hood, CUT ROLL MACHINE OPERATOR PCP - General 10/09/16 documented as of this encounter
--- OUTSIDE RECORDS SUMMARY | 2024-05-18 10:34 | XMS_ITS | Clinical Summary ---
Author Organization [facility] Address [address] [place] [address] Care Team Providers Care Laundry Technician Name Role Phone Faye Hood NP Primary [...] drink = 0.6 oz pur e alcohol) [facility] Utilities Answer Date Recorded In the past 12 months has e [employer], gas, oil, or water [employer] threatened to shut off services in your [...] often do you attend chur ch or alevism services? Never 06/09/2023 Do you belong to any clubs o r organizations such as jehovah's witness groups, unions, fraternal or athletic groups, or [...] place to sleep or slept in a fdc (including now)? No 06/09/2023 Personal Safety Answer Date Recorded Have you ever been in or are you currently in a harmful physical or emotional relationship or is someone making you feel afraid or unsafe? Denies 06/08/2023 Comments No Sex and Gender Information Value Date Recorded Sex Assigned at Not on file Legal Sex Female 8:26 AM VEIN PUMPER Gender Identity Not on file Sexual Orientation Not on file Occupation Industry Job Start Date Job End Date [employer] Not on file Not on file Not on bridgett e Obstetrics History Last Filed Vital Signs Vital Sign Reading Time Taken Comments Blood Pressure 108/66 06/10/2023 3:25 PM VEIN PUMPER Pulse 85 06/10/2023 3:25 PM VEIN PUMPER Temperature 37.2 C (99 F) 06/10/2023 3:25 PM VEIN PUMPER Respiratory Rate 14 06/10/2023 3:25 PM VEIN PUMPER Oxygen Saturation 100% 06/10/2023 3:25 PM VEIN PUMPER Inhaled Oxygen Concentration - - Weight 51.3 kg (113 lb 1.5 oz) 06/08/2023 6:11 P M VEIN PUMPER Height 162.6 cm (5' 4.02 ) 06/08/2023 6:11 PM CS T Body Mass Index 19.4 06/08/2023 6:11 PM VEIN PUMPER Plan of Treatment Health Maintenance Due Date [...] 01/02/2016 10:5 7 AM CDT Lindy Cody NICKER LAB BLOOD ORDERABLES Final R esult CDR HISTORICAL RESULTS from Last 3 Months or Most Recently Relevant to Health Maintenance Insurance Member Subscriber Plan / Payer (Ef fective 2018-Present) Name:Sally De Oliveira Relation to Subscriber:Self Name:Sally De Oliveira Payer ID:[id number] (NAIC) Type:MEDICAID RISK OTHER Address: [address] [place] [address] Care Teams Laundry Technician Relationship Specialty Start Date End Date Faye Hood NP PCP - General 10/09/16
--- OUTSIDE RECORDS SUMMARY | 2024-05-18 10:34 | XMS_ITS | Referral Summary ---
Author Organization [facility] Address [address] [place] [address] Care Team Providers Care Dcs Engineer Name Role Phone Faye Hood NP Primary [...] drink = 0.6 oz pur e alcohol) [facility] Utilities Answer Date Recorded In the past 12 months has e [employer], gas, oil, or water company threatened to [...] often do you attend chur ch or restorationist services? Never 06/09/2023 Do you belong to any clubs o r organizations such as catholic groups, unions, fraternal or athletic groups, or [...] place to sleep or slept in a [place] health care facility (including now)? No 06/09/2023 Personal Safety Answer Date Recorded Have you ever been in or are you currently in a harmful physical or emotional relationship or is someone making you feel afraid or unsafe? Denies 06/08/2023 Comments No Sex and Gender Information Value Date Recorded Sex Assigned at Not on file Legal Sex Female 8:26 AM TAFFY PULLER Gender Identity Not on file Sexual Orientation Not on file Occupation Industry Job Start Date Job End Date [employer] Not on file Not on file Not on bridgett e Last Filed Vital Signs Vital Sign Reading Time Taken Comments Blood Pressure 108/66 06/10/2023 3:25 PM TAFFY PULLER Pulse 85 06/10/2023 3:25 PM TAFFY PULLER Temperature 37.2 C (99 F) 06/10/2023 3:25 PM TAFFY PULLER Respiratory Rate 14 06/10/2023 3:25 PM TAFFY PULLER Oxygen Saturation 100% 06/10/2023 3:25 PM TAFFY PULLER Inhaled Oxygen Concentration - - Weight 51.3 kg (113 lb 1.5 oz) 06/08/2023 6:11 P M TAFFY PULLER Height 162.6 cm (5' 4.02 ) 06/08/2023 6:11 PM CS T Body Mass Index 19.4 06/08/2023 6:11 PM TAFFY PULLER Plan of Treatment Not on file Procedures Procedure Name Priority Date/Time Associated Diagnosis Comments SERUM HEPATITIS C AB Routine 01/02/2016 10:57 AM CDT from Last 3 Months or Most Recently Relevant to Health Maintenance Results * Serum Hepatitis C ab (01/02/2016 10:57 AM CDT) HCV ab Negative NEG CDR HISTOR ICAL RESULTS Serum 01/02/2016 10:5 7 AM CDT Lindy Cody POT TENDER LAB BLOOD ORDERABLES Final R esult CDR HISTORICAL RESULTS from Last 3 Months or Most Recently Relevant to Health Maintenance [facility] [place] [id number] [place] [address] Care Teams Dcs Engineer Relationship Specialty Start Date End Date Faye Hood NP PCP - General 10/09/16
--- OUTSIDE RECORDS SUMMARY | 2024-05-18 10:34 | XMS_ITS | Data Portability ---
Author Organization [employer] , [facility] Address [address] [place] [address] Assessment No assessment recorded. Plan of Treatment Reminders Order Date Submit Date Provider Last Modified By Organization Details Last Modified Time Details Appointments None recorded. Lab afp (alpha-feto protein) panel, maternal screen, serum 2023 024 Parsely [facility], [address] [place], [address], 4 17:07:51 glucose tolerance test, post-50G, 1-hour 2023 024 [facility], [address] [place], [address], 4 11:36:02 CBC w/ auto diff 2023 024 [facility], [address] [place], [address], 4 12:17:43 obstetric screen, serum or blood 2023 024 [facility], [address] [place], [address], 4 12:12:22 Referral None recorded. Procedures None recorded. Surgeries None recorded. Imaging US, obstetric, 2nd trimester 2023 024 PHILLIP Not available 4 08:38:15 US, obstetric, transvagina l 2023 024 [email or web address] Not available 15:41:26 US, obstetric, follow-up 2023 024 [email or web address] Not available 16:05:44 Medication Orders 28 mg iron-800 mcg tablet 2023 024 PHILLIP [id number], [address] [facility], [place], [place], [id number], 16:35:16 Patient TargetsNo targets recorded. Patient Instructions Encounter Date Encounter Id Patient Instructions Last Modified By Organization Details Last Modified Time 11/04/2023 [id number] learning about screening for gestational diabetes [email or web address] Not available 11/04/2023 14:27:53 Reason for Referral None Reported. Results Created Date Observation Date Name Description Value Unit Range Abnormal Flag Note LastModifiedBy Organization Detail LastModifiedTime 08/18/19 24 08/20/2023 MATER NAL SERUM AFP interpretati on: Scree n negat kira for open NTD. Not Available [employer] [address] [place], [address], 08/20/2023 17:07:51 08/18/1908/20/2023 MATER NAL SERUM AFP risk for ontd 1 IN 2165 Not Available [employer] [address] [place], [address], 08/20/2023 17:07:51 08/18/1908/20/2023 MATER NAL SERUM AFP AFP, serum 100.3 NG/mL Not Available [facility] [address] [place], [address], 08/20/2023 17:07:51 08/18/1908/20/2023 MATER NAL SERUM AFP AFP MOM 1.87 Not Available [facility] [address] [place], [place] [address] [place], [address], 08/20/2023 17:07:51 08/18/19 24 08/20/2023 MATER NAL SERUM AFP comments: This patie nt's AROLDO (anirudh mated date of shay haji) was used to calcu late the gesta benny l age. The AFP test resul t indic ates that this patie nt is scree n negat kira for open NTD. It shoul d be noted that serenity l test resul ts can never guara ntee the of a serenity l baby and that 2-3% of [facility] have some type of physi cedric or menta l defec t, many of which are undet ectab le throu gh any known prena cisco diagn ostic techn ique. Not Available [employer] [address] [address] [address] , [place], [address], 08/20/2023 17:07:51 08/18/19 24 08/20/2023 MATER NAL SERUM AFP comment This is a scree yu test, not a diagn ostic test. This risk asses sment repor t is based in part on demog raphi c data provi ded by the order ing physi lashon. Pleas e notif y the labor atory promp tly if any data are incor rect. For sumanth tance with recal culat ions, pleas e call your local [facility] . For sumanth tance with inter preta tion of these resul ts, pleas e conta ct your Local [facility] dionisio ic couns elor or call [phone] [phone] INFO( [phone]). Inter preti ve Cutof fs Scree n Posit kira for Open NTD: > or = 2.50 adjus jonathan MOM > or = 1.90 adjus jonathan MOM for insul in-de pende nt diabe tics > or = 4.00 adjus jonathan MOM for twins > or = 3.50 adjus jonathan MOM for twins insul in-de pende nt diabe tics > or = 4.50 adjus jonathan MOM for tripl ets For addit ional infor chantell brown e refer to http: //yue ken.que stdia gnost ics.c om/fa q/FAQ 74v1 (This link is being provi ded for infor [employer]/ educa benny l purpo ses only. ) Not Available [employer] [facility] [place], [address], 08/20/2023 17:07:51 08/18/19 24 08/20/2023 MATER NAL SERUM AFP calc'd gestational age 17.7 weeks Not Available [facility] [address] [address] [place], [address], 08/20/2023 17:07:51 08/18/19 24 08/20/2023 MATER NAL SERUM AFP maternal weight 123 lbs Not Available [facility] [address] [place], [address], 08/20/2023 17:07:51 08/18/19 24 08/20/2023 MATER NAL SERUM AFP est'd date of delivery 2023 Not Available [facility] [address], [address], 08/20/2023 17:07:51 08/18/19 24 08/20/2023 MATER NAL SERUM AFP aroldo determined by LMP Not Available [address], [address], 08/20/2023 17:07:51 08/18/19 24 08/20/2023 MATER NAL SERUM AFP mother's ethnic origin NILE N AMERIC AN Not Available [facility] [address] [address] [place], [address], 08/20/2023 17:07:51 08/18/19 24 08/20/2023 MATER NAL SERUM AFP number of fetuses 1 Not Available [address] [address] [place], [address], 08/20/2023 17:07:51 08/18/19 24 08/20/2023 MATER NAL SERUM AFP insulin depend diabetic NO Not Available [facility] [address] [address] [place], [address], 08/20/2023 17:07:51 08/18/19 24 08/20/2023 MATER NAL SERUM AFP repeat specimen NO Not Available [facility] [address] [address] [place], [address], 08/20/2023 17:07:51 08/18/19 24 08/20/2023 MATER NAL SERUM AFP Hx of neural tube defects NO Not Available [address] [place], [address], 08/20/2023 17:07:51 08/18/19 24 08/20/2023 MATER NAL SERUM AFP prev down synd NO Not Available [address] [address] [place], [address], 08/20/2023 17:07:51 08/18/19 24 08/20/2023 MATER NAL SERUM AFP donor egg NO Not Available [address] [address] [place], [address], 08/20/2023 17:07:51 08/18/19 24 08/20/2023 MATER NAL SERUM AFP donor age: egg retrieval NOT GIVEN Not Available [address] [address] [place], [address], 08/20/2023 17:07:51 11/04/19 24 11/05/2023 (50G) 1HR - GLUCO SE JV ANCE TEST, GESTA BENNY L SCREE N glucose (50g) 1 hour 113 mg/dL <135 normal Not Available [address], [address], 11/05/2023 11:36:02 11/04/19 24 11/05/2023 OB 28W (SYPH HIV 1/2 Ag/Ab Non-Re active non-re active normal Not Available [address], [address], 11/05/2023 12:12:22 11/04/19 24 11/05/2023 OB 28W (SYPH syphilis Ab Non-Re active non-re active normal Not Available [address], [address], 11/05/2023 12:12:22 11/04/19 24 11/05/2023 CBC (INCL UDES DIFF/ PLT) WBC 10.6 thous and/u L 4.0 - 9.8 high Not Available [employer] [address] [place] [address], [address], 11/05/2023 12:17:43 11/04/19 24 11/05/2023 CBC (INCL UDES DIFF/ PLT) RBC 4.0 juan carlos on/uL 3.9 - 4.9 normal Not Available [employer] [address] [place] [address], [address], 11/05/2023 12:17:43 11/04/19 24 11/05/2023 CBC (INCL UDES DIFF/ PLT) hemoglobin 9.7 g/dL 11.8 - 14.8 low Not Available [employer] [address] [place] [address], [address], 11/05/2023 12:17:43 11/04/19 24 11/05/2023 CBC (INCL UDES DIFF/ PLT) hematocrit 30.7 % 35.5 - 44.0 low Not Available [employer] [address] [place] [address], [address], 11/05/2023 12:17:43 11/04/19 24 11/05/2023 CBC (INCL UDES DIFF/ PLT) MCV 77.3 fL 82.0 - 99.0 low Not Available [employer] [address] [place] [address], [address], 11/05/2023 12:17:43 11/04/19 24 11/05/2023 CBC (INCL UDES DIFF/ PLT) MCH 24.4 pg 27.2 - 32.6 low Not Available [employer] [address] [place] [address], [address], 11/05/2023 12:17:43 11/04/19 24 11/05/2023 CBC (INCL UDES DIFF/ PLT) MCHC 31.6 g/dL 31.5 - 35.5 normal Not Available [address], [address], 11/05/2023 12:17:43 11/04/19 24 11/05/2023 CBC (INCL UDES DIFF/ PLT) RDW-CV 14.3 % 11.5 - 14.5 normal Not Available [address], [address], 11/05/2023 12:17:43 11/04/19 24 11/05/2023 CBC (INCL UDES DIFF/ PLT) platelet 317 thous and/u L 140 - 350 normal Not Available [address], [address], 11/05/2023 12:17:43 11/04/19 24 11/05/2023 CBC (INCL UDES DIFF/ PLT) MPV 11.2 fL 9.3 - 12.4 normal Not Available [address], [address], 11/05/2023 12:17:43 11/04/19 24 11/05/2023 CBC (INCL UDES DIFF/ PLT) absolute neutrophil 7.62 thous and/u L 1.90 - 7.00 high Not Available [address], [address], 11/05/2023 12:17:43 11/04/19 24 11/05/2023 CBC (INCL UDES DIFF/ PLT) absolute lymphocyte 2.00 thous and/u L 0.70 - 4.50 normal Not Available [address], [address], 11/05/2023 12:17:43 11/04/19 24 11/05/2023 CBC (INCL UDES DIFF/ PLT) absolute monocyte 0.80 thous and/u L 0.10 - 1.30 normal Not Available [address], [address], 11/05/2023 12:17:43 11/04/19 24 11/05/2023 CBC (INCL UDES DIFF/ PLT) absolute eosinophil 0.06 thous and/u L <0.70 normal Not Available [address], [address], 11/05/2023 12:17:43 11/04/19 24 11/05/2023 CBC (INCL UDES DIFF/ PLT) absolute basophil 0.05 thous and/u L <0.20 normal Not Available [address], [address], 11/05/2023 12:17:43 11/04/19 24 11/05/2023 CBC (INCL UDES DIFF/ PLT) absolute immature granulocyte 0.05 thous and/u L <0.03 high Not Available [address], [address], 11/05/2023 12:17:43 09/19/19 24 09/15/2023 US, obste tric, 2nd trime ster No observ ation record ed. [email or web address] [address], [place], [address], 09/19/2023 17:23:01 12/03/19 24 12/02/2023 , obste tric, follo w-up No observ ation record ed. [email or web address] [address], [place], [address], 12/04/2023 20:30:57 Result Notes None recorded. Problems Name Problem SNOMED Code Status Onset Date Resolution Date Notes Provider Name and Address Organization Details Recorded Time 89275561 Completed 202305/03/2024 Layla del toro, [facility] IV 5 17:17:11 Small for gestational age fetus 940604994 Completed 2023 37% = 4lb 8oz Jose Ramon Hong MD [address] [facility], [place], [address], [employer] IV 16:00:08 Problem Notes None recorded. Procedures Surgical History Date Name Laterality Status Provider Name and Address Organization Details Recorded Time Colposcopy - Cervix completed Calin Piña [facility] 07/09/2023 14:45:39 Date of Last Pap Smear completed Rob Nunez [facility] 06/24/2023 14:21:45 Imaging Results Imaging Date Name Status LastModified by Organiz ation Details LastModified Time 09/15/2023 US, obstetric, 2nd trimester completed [email or web address] [address], [place], [address], 09/19/2023 17:23:01 12/02/2023 US, obstetric, follow-up completed [email or web address] [address], [place], [address], 12/04/2023 20:30:57 Procedure Notes None recorded. Medical Equipment None Reported. Allergies No known drug allergies Medications Name Sig Start Date Stop Date Status Note LastModified by Organization Details LastModified Time fluconazole 150 mg tablet TAKE 1 TABLET BY MOUTH AT END OF METRONIDA ZOLE AND 1 TABLET 72 HOURS LATER 06/07 completed Not Available Not Available Not Available fluconazole 200 mg tablet TAKE 1 TABLET BY MOUTH NOW AND 72 HOURS LATER 06/07 completed Not Available Not Available Not Available metronidazo le 500 mg tablet TAKE 1 TABLET BY MOUTH TWICE DAILY 06/07 completed Not Available Not Available Not Available metoclopram rafal 5 mg tablet TAKE 1 TABLET BY MOUTH EVERY 6 HOURS NEEDED FOR NAUSEA OR VOMITING 06/23 completed Not Available Not Available Not Available promethazin e 25 mg tablet TAKE 1 TABLET BY MOUTH EVERY 4-6 HOURS NEEDED FOR NAUSEA 06/07 completed Not Available Not Available Not Available ibuprofen 600 mg tablet TAKE 1 TABLET BY MOUTH EVERY 6 HOURS NEEDED FOR PAIN 06/07 completed Not Available Not Available Not Available ondansetron 4 mg disintegrat ing tablet DISSOLVE 1 TABLET ON THE TONGUE EVERY 8 HOURS NEEDED FOR NAUSEA OR VOMITING 09/14 completed Not Available Not Available Not Available amoxicillin 875 mg-potassiu m clavulanate 125 mg tablet TAKE 1 TABLET BY MOUTH TWICE DAILY FOR 7 DAYS 06/07 completed Not Available Not Available Not Available FeroSul 325 mg (65 mg iron) tablet TAKE 1 TABLET BY MOUTH EVERY DAY. active Not Available Not Available No t Available 28 mg iron-800 mcg tablet TAKE 1 TABLET BY MOUTH EVERY DAY active Not Available Not Available No t Available 28 mg-800 mcg tablet Take 1 tablet every day by oral route. 09/14 completed Not Available Not Available Not Available Vitals Date Recorded Body height Body mass index (BMI) Body weight Body temperature Systolic blood pressure Diastolic blood pressure Provider Name and Address Organization Details Last Updated DateTime 4 162.56 cm 21.1 kg/m2 39961.8 6 g 97.3 [degF] 112 mm[Hg] 74 mm[Hg] Tea [facility] [place] [facility] IV 4 15:20:06 Date Recorded Body height Provider Name an d Address Organization Details Last Updated DateTime 09/15/2023 162.56 cm [email or web address] IV 09/15/2023 15:36:03 Date Recorded Body mass index (BMI) Body weight Systolic blood pressure Diastolic blood pressure Provider Name and Address Organization Details Last Updated DateTime 09/15/2023 22.5 kg/m2 52968.60 047 g 118 mm[Hg] 62 mm[Hg] Elisabeth Restrepo [facility] [place] [facility] IV 09/15/2023 16:19:54 Date Recorded Body height Body weight Body temperature Systolic blood pressure Diastolic blood pressure Provider Name and Address Organization Details Last Updated DateTime 4 162.56 cm 25033.6 63650 g 98.2 [degF] 118 mm[Hg] 78 mm[Hg] No Neves [facility] IV 4 14:15:10 Date Recorded Body height Body mass index (BMI) Body weight Body temperature Systolic blood pressure Diastolic blood pressure Provider Name and Address Organization Details Last Updated DateTime 4 162.56 cm 23.7 kg/m2 67745.7 5 g 98.7 [degF] 116 mm[Hg] 72 mm[Hg] No Neves [facility] 4 15:50:04 Date Recorded Body height Body mass index (BMI) Body weight Body temperature Systolic blood pressure Diastolic blood pressure Provider Name and Address Organization Details Last Updated DateTime 4 162.56 cm 24.4 kg/m2 74569.5 5 g 97.3 [degF] 110 mm[Hg] 60 mm[Hg] Layla Calvert [employer] IV 4 15:47:14 Social History Question Answer Notes LastModified by [employer] Details LastModified Time Tobacco Smoking Status Never Smoker Rob del toro, [employer] [facility] 06/24/2023 14:25:07 What Is Your Level Of Alcohol Consumption? None Information not available 06/24/2023 Are You Blind Or Do You Have Difficulty Seeing? No Information not available 06/24/2023 Are You Deaf Or Do You Have Serious Difficulty Hearing? No Information not available 06/24/2023 What Type Of Diet Are You Following? REGULAR Information not available 06/24/2023 How Many Children Do You Have? 2 [email or web address] Information not available 06/08/2023 What Is Your Relationship Status? Single [email or web address] Information not available 06/08/2023 Are You Sexually Active? Yes [email or web address] Information not available 06/08/2023 Do You Use Any Illicit Or Recreational Drugs? No Information not available 06/24/2023 Do You Or Have You Ever Used Any Other Forms Of Tobacco Or Nicotine? No Information not available 06/24/2023 Sex: Unknown Functional Status Question Answer Note LastModified by [employer] Details LastModified Time What is your exercise level? Occasional Information not available 06/24/2023 Mental Status None recorded. Family History Relationship Description Onset Age of this Age Resolved Age Notes LastModified by Organization Details LastModified Time Father No current problems or disability Not available 07/2023 14:44:17 Mother No current problems or disability Not available 07/2023 14:44:17 Medical History Condition Response Other Cancer N High Blood Pressure N Colon Cancer N Cytomegalovirus N Hyperthyroidism N MRSA N Breast Cancer N Herpes (HSV) N Blood Transfusion N Lung Cancer N Depression N Hypothyroidism N Incontinence N Panic Attacks N Neurological Disorder N Deep Vein Thrombosis N Anxiety Disorder N Autoimmune disease N Arthritis N Tuberculosis/Positive PPD N Shingles N Polycystic Ovarian Syndrome N Cervical Cancer N Hematuria N Chlamydia N Stroke N Varicosities N Seasonal allergies N Crohn's Disease N Alzheimer's/Dementia N COPD/Emphysema N Endometriosis N HPV/Genital Warts N IBS (Irritable Bowel Syndrome) N History of Abnormal Pap N High Cholesterol N Liver Disease N Kidney Infection N Fibromyalgia N Ulcer N Kidney Disease N HIV N Gallbladder disease N Sickle Cell Disease/Trait N Von Willebrand disease N ADD/ADHD N Eating Disorder N Anemia N Diabetes Mellitus (non-insulin dependent ) N Multiple Sclerosis N Ovarian Problems N Gonorrhea N Frequent Urinary Tract infections N Osteopenia N Headaches/migraines N GERD (reflux) N Ovarian Cancer N Diabetes (insulin dependent) N Seizures/Epilepsy N Fibroids N Asthma N Heart Attack N Lupus N Endometrial Cancer N Rubella N Blood Clotting Disorder N Bipolar Disorder N Diabetes Mellitus (during ) N Ulcerative Colitis N Hepatitis N Heart Disease N Pulmonary Embolism N RPR N Chicken Pox N Osteoporosis N Gynecological History Statement/Question Response Date of Last Pap Smear 06/24/2023 Current Control Method Age at Menarche 14 Date of LMP 04/16/2023 Obstetrics History GPAL:G 3 P 2 0 0 2 Type Value Full Term 2 Living 2 Total 3 Past Encounters Encounter ID Performer Location Encounter Start Date Encounter Closed Date Diagnosis/Indication Diagnosis SNOMED-CT Code Diagnosis ICD10 Code Diagnosis Note [id number] Cyn Finnegan MD [facility] [address] [place] [address] 06/08/2023 14:34:19 06/08/2023 17:57:45 test positive 330187035 Z32.01 1. Nausea and vomiting: The patient is experienci ng severe nausea and vomiting, with episodes occurring as frequently as 10 times a day. This is affecting her overall well-being and causing weight loss. The patient has been to the hospital twice already for this issue. I will admit the patient to [facility] for further evaluation and management . We will start with IV fluids and anti-nause a medication to provide relief. We will then attempt to transition to oral medication for nausea and consider other therapeuti c options as needed. ER gave her zofran and reglan without relief. 2. Weight loss: The patient has experience d significan t weight loss, dropping from 126 to 116 pounds. This is likely due to the frequent vomiting and inability to keep food down. We will address this issue by managing the nausea and vomiting and providing nutritiona l support as needed during her hospital stay. 3. Excessive salivation : The patient is experienci ng excessive salivation to the point of needing to carry a cup. This issue is causing her discomfort and affecting her sleep. [id number] [facility] [address] [place] [address] 06/24/2023 13:59:56 06/24/2023 14:51:58 Gestation period, 9 weeks 815747 Z3A.09 screening 2437 [address]7049 Z36.89 Screening for malignant neoplasm of cervix 168326719 Z12.4 Carrier de tection, molecular genetics 3887820 Z14.8 [id number] Jose Ramon Carlos DO [address] [address] 07/09/2023 14:17:27 07/09/2023 17:47:53 Low grade squamous intraepithelial lesion on cervical Papanicolaou smear 4426080882 9105 R87.612 Colposcopy performed today, she tolerated it well.Follo w-up for repeat Pap smear as directed. [id number] Shira Piper CNM [address] [place] [address] 07/22/2023 16:04:32 07/22/2023 16:53:31 Gestation period, 13 weeks 79281506 Z3A.13 Normal pre gnancy in multigravida 8313913668 20403 Z34.81 [id number] [facility] [address] [place] [address] 08/18/2023 14:56:44 08/19/2023 13:34:43 Normal in multigravida 8315818791 95377 Z34.81 Gestation period, 17 weeks 98327287 Z3A.17 Additional diagnosis detail: 17 weeks gestation of Patient en counter status 116229012 Z36.0 Additional diagnosis detail: Encounter for screening for chromosoma l anomalies [id number] KEN ANGELI, PLOW SHAKER [address] [address] 09/15/2023 15:31:04 09/15/2023 16:50:51 Gestation period, 21 weeks 23154507 Z3A.21 Additional diagnosis detail: 21 weeks gestation of Normal 4550252 2 Z34.82 Pt is here for a ALDA appointmen t. She is taking vitamins. She has no complaints or questions. Anatomy complete, EFW 65%, posterior placenta. Reports feeling movement. Denies vaginal bleeding, abdominal cramps, N/V, contractio ns, or LOF. Denies headache, vision changes, swelling of hands or face, and epigastric pain. Discussed PTL and precaution s given. There are no identifiab le risk factors for pre-term labor. Discussed with pt that I do not delivery babies. Recommende d pt see a Delivery Provider next visit. screening for malformation 259788913 Z36.3 screening 2437 569[address] Z36.86 [id number] AMERICA NO, [address] [address] 11/04/2023 14:05:33 11/04/2023 14:40:05 Gestation period, 28 weeks 54562125 Z3A.28 Additional diagnosis detail: 28 weeks gestation of screening 2437 96818 Z36.89 [id number] Jose Ramon Hong MD [address] [address] 12/02/2023 15:02:24 12/09/2023 11:08:29 Anemia of 94753270 O99.013 Gestation period, 32 weeks 9460015 Z3A.32 Normal 6952369 2 Z34.82 Uterine si ze for dates discrepancy 274323115 O26.345 [id number] Kerri hook, [facility] [address] [place] [address] 12/15/2023 15:36:53 12/15/2023 16:36:15 Gestation period, 34 weeks 90613716 Z3A.34 Health Concerns Section Related Observation LastModified by Organization Detai ls LastModified Time None Recorded Concern Status LastModified by Organization Details LastModified Time None Recorded Advance Directives Directive None Recorded Payers Encounter Date Sequence Insurance Name Policy Number Policy Galindo Covered Member ID Galindo Member ID Guarantor Name 08/18/2023 1 [place] AFTER 10/04/20 (MEDICAID REPLACEMENT - HMO) Sally De Oliveira [id number] Sally De Oliveira 09/15/2023 1 [place] 10/04/20 (MEDICAID REPLACEMENT - HMO) Sally De Oliveira [id number] Sally De Oliveira 11/04/2023 1 [place] 10/04/20 (MEDICAID REPLACEMENT - HMO) Sally De Oliveira [id number] Sally De Oliveira 12/02/2023 1 [place] 10/04/20 (MEDICAID REPLACEMENT - HMO) Sally De Oliveira [id number] Sally De Oliveira 12/15/2023 1 [place] AFTER 10/04/20 (MEDICAID REPLACEMENT - HMO) Sally De Oliveira [id number] Sally De Oliveira Notes Date Note Type Note Provider Name and Address Organization Details Recorded Time 08/18/2023 text/html OB ProblemReport ed bypatient.Associated Symptoms:no abdominal pain; no cramping; no bleeding; no vaginal discharge; no vaginal/vulvar itching or irritation; no headache; no dizziness; no breathlessnessNotes:n o back pain Shira Piper, [facility] [address] [place], [address], [facility] 08/18/2023 15:32:08 09/15/2023 text/html Patient is here today for a routine OB visit. She is currently at {{6 7 8 9 10 11 12 13 14 15 16 17 18 19 20 21 22 23 24 25 26 27 28 29 30 31 32 33 34 35 36 37 38 39 40 41 21.5#}} weeks gestation. vitamins: {{yes no*}} She {{has* has not}} felt movement.She denies any complaints of the presence of vaginal bleed, leaking fluid, abdominal cramps, nausea, vomiting, headache or visual disturbances.Patient states she is unable to leave a urine sample today. KEN SUH, MADYSON [address] [place] [address], [phone], [facility] 09/15/2023 16:37:52 11/04/2023 text/html Patient is here today for a routine OB visit. She is currently at {{6 7 8 9 10 11 12 13 14 15 16 17 18 19 20 21 22 23 24 25 26 27 28* 29 30 31 32 33 3 4 35 36 37 38 39 40 4 1}} weeks gestation. vitamins: {{yes* no}} She {{has* has not}} felt movement. She denies any complaints of the presence of vaginal bleed, leaking fluid, abdominal cramps, nausea, vomiting, headache or visual disturbances. AMERICA NO DO [address] [place] [address], [phone], [facility] 11/04/2023 14:39:28 12/02/2023 text/html The patient piyush nuno consented to documentation via virtual scribe for this encounter.Patient is here today for a routine OB visit. She is currently at 32.6weeks gestation. vitamins: {{yes* no}} She {{has* has not}} felt movement.She denies any complaints of the presence of vaginal bleed, leaking fluid, abdominal cramps, nausea, vomiting, headache or visual disturbances. Jose Ramon Hong MD [address] [place] [address], [id number], [facility] 12/08/2023 14:46:57 12/15/2023 text/html Patient is here today for a routine OB visit. She is currently at {{6 7 8 9 10 11 12 13 14 15 16 17 18 19 20 21 22 23 24 25 26 27 28 29 30 31 32 33 34 35 36 37 38 39 40 41 34.5#}}34.5 weeks gestation. vitamins: {{yes* no}} She {{has* has not}} felt movement. She denies any complaints of the presence of vaginal bleed, leaking fluid, abdominal cramps, nausea, vomiting, headache or visual disturbances. Kerri Virk, CNM [address] [facility], [place], [address], [facility] 12/15/2023 16:03:30 OBGyn Episode Ob Episode Information Episode Created Date Number of Fetuses Patient Bloodtype Patient rh Status Prepregnancy Weight lbs Domestic Partner Domestic Partner Phone Father Name Fresh Food Manager Status 06/24/19 24 1 Positive CLOSED Fetus Data First Name Last Name Admitted to NICU Weight (g) Sex Living Outcome Pediatric Complications Fetus ID Race Codes Race Delivery Type [id number] Problems Problem Notes Problem Name Start Date End Date Resolution Snomed Code Not e Small for gestational age fetus 12/02/2023 [id number] 37% = 4lb 8oz Aroldo Calculation Initial Aroldo Date Initial Exam Date Initial Exam Provider Initial Ultrasound Date Last Menstrual Period Date Ultra Sound Weeks Gestation 01/21/2024 06/24/2023 04/16/2023 0 Eighteen To Twenty Week Aroldo Update Ultra Sound Date Fundal Height At Umbil Quickening Date Ultra Sound Latest Weeks Gestation Final Aroldo Confirmed By Final Aroldo Confirmed Date Final Aroldo Date Ultra Sound Latest Days Gestation 0 01/21/20 24 0 Pre-higinio Flowsheet Flowsheet Date 06/24/2023 Avalos Score Blood Edema Fundus Height Fundus Units Glucose Ketones Leukocytes Nitrite Labor Signs Protein Cervic Dilation Cervic Effacement Cervic Station Type Weight in lbs Pre/Post Dialysis Refused With clothes 116.755419177612 BP Diastolic BP Location Tested BP Systolic BP Type 78 L arm 108 sitting Fetus Heart Rate Present A 165 Fetus Movement A Yes Comments Complains of spotting episod e. Ultrasound with cardiac activity today. Returning for new ob labs with [email or web address] tomorrow at pt request. Pap collected today. Strict precautions reviewed. Flowsheet Date 07/09/2023 Avalos Score Blood Edema Fundus Height Fundus Units Glucose Ketones Leukocytes Nitrite Labor Signs Protein Cervic Dilation Cervic Effacement Cervic Station Type Weight in lbs Pre/Post Dialysis Refused With clothes 118.351355264775 BP Diastolic BP Location Tested BP Systolic BP Type 72 L arm 114 sitting Fetus Heart Rate Present Fetus Movement Comments Flowsheet Date 07/22/2023 Avalos Score Blood Edema Fundus Height Fundus Units Glucose Ketones Leukocytes Nitrite Labor Signs Protein Cervic Dilation Cervic Effacement Cervic Station Type Weight in lbs Pre/Post Dialysis Refused Weight 117.141836125519 BP Diastolic BP Location Tested BP Systolic BP Type 58 100 Fetus Heart Rate Present A 165 Fetus Movement A Yes Comments Nausea improved. Discussed l abs. Plan MSAFP next visit. Precautions reviewed. Flowsheet Date 08/18/2023 Avalos Score Blood Edema Fundus Height Fundus Units Glucose Ketones Leukocytes Nitrite Labor Signs Protein Cervic Dilation Cervic Effacement Cervic Station none Type Weight in lbs Pre/Post Dialysis Refused Weight 123.486254262673 BP Diastolic BP Location Tested BP Systolic BP Type 74 112 Fetus Heart Rate Present A 148 Fetus Movement A Yes Comments MSAFP today. Nausea no longe r present. Denies questions or concerns. PTL/PIH precautions reviewed. Flowsheet Date 09/15/2023 Avalos Score Blood Edema Fundus Height Fundus Units Glucose Ketones Leukocytes Nitrite Labor Signs Protein Cervic Dilation Cervic Effacement Cervic Station none none none neg Type Weight in lbs Pre/Post Dialysis Refused With clothes 131.963493250616 BP Diastolic BP Location Tested BP Systolic BP Type 62 118 sitting Fetus Heart Rate Present A 157 Present Fetus Movement A Yes Comments No OB complaints. Anatomy co mplete, EFW 65%, posterior placenta. RTC in 4 weeks. Flowsheet Date 11/04/2023 Avalos Score Blood Edema Fundus Height Fundus Units Glucose Ketones Leukocytes Nitrite Labor Signs Protein Cervic Dilation Cervic Effacement Cervic Station 28 cm Type Weight in lbs Pre/Post Dialysis Refused 135.544560637261 BP Diastolic BP Location Tested BP Systolic BP Type 78 118 Fetus Heart Rate Present A 145 Fetus Movement A Yes Comments Flowsheet Date 12/02/2023 Avalos Score Blood Edema Fundus Height Fundus Units Glucose Ketones Leukocytes Nitrite Labor Signs Protein Cervic Dilation Cervic Effacement Cervic Station none 30 cm Type Weight in lbs Pre/Post Dialysis Refused Weight 138.727152766641 BP Diastolic BP Location Tested BP Systolic BP Type 72 116 Fetus Heart Rate Present A 140 Present Fetus Movement A Yes Comments US and had 37% today and nl fluid and doing well and conseidering induction 01-16-24 4lb 8 oz Flowsheet Date 12/15/2023 Avalos Score Blood Edema Fundus Height Fundus Units Glucose Ketones Leukocytes Nitrite Labor Signs Protein Cervic Dilation Cervic Effacement Cervic Station none neg Type Weight in lbs Pre/Post Dialysis Refused With clothes 142.312741783351 BP Diastolic BP Location Tested BP Systolic BP Type 60 110 sitting Fetus Heart Rate Present Fetus Movement A Yes Comments Menstrual History Last Menstrual Date Menses Monthly On Bcp Conception Prior Menses Frequency Hcg Plus Date Menarche Onset Age 0104/16/2023 Delivery Information Delivery Date Delivery Type Labor Anesthesia Weeks Gestation Incision Type Labor Labor Length Hrs Delivered By Post Complications Tubal Sterilization Discharge Date Comments Discharge Information Feeding Method Contraceptive Method Maternal HG B and HCT Levels Ob Episode Information Episode Created Date Number of Fetuses Patient Bloodtype Patient rh Status Prepregnancy Weight lbs Domestic Partner Domestic Partner Phone Father Name Fresh Food Manager Status 06/08/19 24 1 CLOSED Fetus Data First Name Last Name Admitted to NICU Weight (g) Sex Living Outcome Pediatric Complications Fetus ID Race Codes Race Delivery Type 7.96 F Full Term [id number] Aroldo Calculation Initial Aroldo Date Initial Exam Date Initial Exam Provider Initial Ultrasound Date Last Menstrual Period Date Ultra Sound Weeks Gestation 0 Eighteen To Twenty Week Aroldo Update Ultra Sound Date Fundal Height At Umbil Quickening Date Ultra Sound Latest Weeks Gestation Final Aroldo Confirmed By Final Aroldo Confirmed Date Final Aroldo Date Ultra Sound Latest Days Gestation 0 0 Menstrual History Last Menstrual Date Menses Monthly On Bcp Conception Prior Menses Frequency Hcg Plus Date Menarche Onset Age Delivery Information Delivery Date Delivery Type Labor Anesthesia Weeks Gestation Incision Type Labor Labor Length Hrs Delivered By Post Complications Tubal Sterilization Discharge Date Comments 7 40 Discharge Information Feeding Method Contraceptive Method Maternal HG B and HCT Levels Ob Episode Information Episode Created Date Number of Fetuses Patient Bloodtype Patient rh Status Prepregnancy Weight lbs Domestic Partner Domestic Partner Phone Father Name Fresh Food Manager Status 06/08/19 24 1 CLOSED Fetus Data First Name Last Name Admitted to NICU Weight (g) Sex Living Outcome Pediatric Complications Fetus ID Race Codes Race Delivery Type 2267.96 F Full Term [id number] Aroldo Calculation Initial Aroldo Date Initial Exam Date Initial Exam Provider Initial Ultrasound Date Last Menstrual Period Date Ultra Sound Weeks Gestation 0 Eighteen To Twenty Week Aroldo Update Ultra Sound Date Fundal Height At Umbil Quickening Date Ultra Sound Latest Weeks Gestation Final Aroldo Confirmed By Final Aroldo Confirmed Date Final Aroldo Date Ultra Sound Latest Days Gestation 0 0 Menstrual History Last Menstrual Date Menses Monthly On Bcp Conception Prior Menses Frequency Hcg Plus Date Menarche Onset Age Delivery Information Delivery Date Delivery Type Labor Anesthesia Weeks Gestation Incision Type Labor Labor Length Hrs Delivered By Post Complications Tubal Sterilization Discharge Date Comments 3 40 Discharge Information Feeding Method Contraceptive Method Maternal HG B and HCT Levels
--- OUTSIDE RECORDS SUMMARY | 2024-05-18 10:34 | XMS_ITS | Encounter Summary ---
Author Organization [facility] Address [address] [place] [address] Phone Care Team Providers Care Day Care Supervisor Name Role Phone Unknown, Notinfile Primary Care Provider Unavail able Faye Hood NP Primary Care Provider [phone] Encounter Details Date Type Department Care Team (Latest Contact Info) Description 09/24/2016 Orders Only [facility] CONVERSION Scanning, Provider Social History Tobacco Use Types Packs/Day Years Used Date Smoking Tobacco: Never Comments Unknown Sex and Gender Information Value Date Recorded Sex Assigned at Not on file 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
--- OUTSIDE RECORDS SUMMARY | 2024-05-18 10:34 | XMS_ITS | Encounter Summary ---
Author Organization [facility] Address [address] [place] [address] Care Team Providers Care Sliver Former Name Role Phone Faye Hood NP Primary Care Provider Encounter Details Date Type Department Care Team (Late st Contact Info) Description 06/03/2018 Orders Only [facility] [address] [place] [address] [address] Floor [address] [place] [address] Karyna Begum NP [address] [facility] [place] [address] [place], [place] [id number] Social History Tobacco Use Types Packs/Day Years Used Date Smoking Tobacco: Never Smokeless Tobacco: Never Alcohol Use Standard Drinks/Week Comments No 0 (1 standard drink = 0.6 oz pur e alcohol) Comments No Sex and Gender Information Value Date Recorded Sex Assigned at Not on file 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
--- OUTSIDE RECORDS SUMMARY | 2024-05-18 10:35 | XMS_ITS | Clinical Summary ---
Author Organization [facility] Address [address] [place] [address] Care Team Providers Care Technical Support Technician Name Role Phone Pcp, None Primary Care Provider Unavailabl e Source Comments [facility],non-owned Affiliates and Associated Physician Practices is amultiple site organization consisting of ambulatory clinics and hospital sitesin [place], [place], [place] and [place]. This disclosure is being madepursuant to the Care Everywhere program and may not contain all information available regarding this patient. Last updated 17.[facility] Allergies No known active allergies Medications * [...] Comments Blood Pressure 106/70 04/25/2023 9:11 AM BRAZER ASSEMBLER Pulse 88 04/25/2023 9:11 AM BRAZER ASSEMBLER Temperature 36.6 C (97.9 F) 04/25/2023 9:11 AM BRAZER ASSEMBLER Respiratory Rate 16 04/25/2023 9:11 AM BRAZER ASSEMBLER Oxygen Saturation 99% 04/25/2023 9:11 AM BRAZER ASSEMBLER Inhaled Oxygen Concentration - - Weight 57.5 kg (126 lb 12.2 oz) 04/25/2023 9:11 AM BRAZER ASSEMBLER Height 164 cm (5' 4.57 ) 04/25/2023 9:11 AM BRAZER ASSEMBLER Body Mass Index 21.38 04/25/2023 9:11 AM BRAZER ASSEMBLER Plan of Treatment Health Maintenance Due Date [...] age to complete this topic Care Teams Technical Support Technician Relationship Specialty Start Date End Date Pcp, None [address] [place] [address] PCP - General 04/25/23
--- OUTSIDE RECORDS SUMMARY | 2024-05-18 10:35 | XMS_ITS | Referral Summary ---
Author Organization [facility] Address [address] [place] [address] Care Team Providers Care Turkey Roll Maker Name Role Phone Pcp, None Primary Care Provider Unavailabl e Source Comments [facility],non-owned Affiliates and Associated Physician Practices is amultiple site organization consisting of ambulatory clinics and hospital sitesin [place], [place], [place] and [place]. This disclosure is being madepursuant to the Care Everywhere program and may not contain all information available regarding this patient. Last updated 17.[facility] Allergies No known active allergies Medications * [...] Comments Blood Pressure 106/70 04/25/2023 9:11 AM CAD CAM PROGRAMMER Pulse 88 04/25/2023 9:11 AM CAD CAM PROGRAMMER Temperature 36.6 C (97.9 F) 04/25/2023 9:11 AM CAD CAM PROGRAMMER Respiratory Rate 16 04/25/2023 9:11 AM CAD CAM PROGRAMMER Oxygen Saturation 99% 04/25/2023 9:11 AM CAD CAM PROGRAMMER Inhaled Oxygen Concentration - - Weight 57.5 kg (126 lb 12.2 oz) 04/25/2023 9:11 AM CAD CAM PROGRAMMER Height 164 cm (5' 4.57 ) 04/25/2023 9:11 AM CAD CAM PROGRAMMER Body Mass Index 21.38 04/25/2023 9:11 AM CAD CAM PROGRAMMER Plan of Treatment Not on file Care Teams Turkey Roll Maker Relationship Specialty Start Date End Date Pcp, None [address] [place] [address] PCP - General 04/25/23
--- OUTSIDE RECORDS SUMMARY | 2024-05-18 10:35 | XMS_ITS | Continuity of Care Document ---
Author Organization [facility] Address [address] [place] [address] Phone Care Team Providers Care Steam And Gas Turbine Assembler Name Role Phone Unavailable Unavailable Unavailable Luke [...] Encounter [facility], [address], [place], [place], [id number] , tel: [phone] [facility] No Information 0 No Information Consulting Provider: Ese Butler, [address], [place], [address]. [phone] OFFICE/OUTPA TIENT VISIT, EST [facility], [address], [place], [place], [id number] , [place] tel: [phone] [facility] bacteria infection (chief complaint) DysuriaAllergic reaction, initial encounterEncounte r for screening for other disorderEncounter for screening, unspecified 9 Hernán Arredondo. [address], [place], [place], [address], . tel:[phone] Referring Provider: Arnulfo Jim, [address], [place], [address]. [phone] OFFICE/OUTPA TIENT VISIT, EST [facility], [address], [place], [place], [address] , tel: [phone] [facility]gent [facility] bacterial infection (chief complaint) VaginitisEncounte r for sexually transmitted disease screeningEncounte r for screening, unspecified 8 Deng Arita. [address], [place], [place], [address], . tel:[phone] Referring Provider: Lyla Vilchis, [address], [place], [address]. tel:[phone] [facility], [address], [place], [place], [address] , tel: [phone] Urgent Care Other gonococcal infection 8 Hernán Arredondo. [address], [place], [place], [address], . tel:[phone] OFFICE OUTPT EST 25 MIN [facility], [address], [place], [place], [address] , tel: [phone] Urgent Care UTI (chief complaint) Encounter for sexually transmitted disease screeningEncounte r for screening, unspecified 8 No Information [facility], [address], [place], [place], [address] , tel: [phone] [facility] No Information 8 Rio Kitchen. [address], [place], [place], [address]. tel:[phone] Referring Provider: Imtiaz Pate, [address], [place], [address]. tel:[phone] OFFICE/OUTPA TIENT VISIT, EST [facility], [address], [place], [place], [address] , tel: [phone] Urgent Care vaginal bleed (chief complaint) Menorrhagia NOSEncounter for screening for other disorderEncounter for screening, unspecified 8 No Information OFFICE/OUTPA TIENT VISIT, NEW [facility], [address], [place], [place], [address] , tel: [phone] [facility] yeast infection (chief complaint) VaginitisScreenin g for alcoholismLeukorr hea, not specified as infective 5 No Information Referring Provider: Arnulfo Jim, [address], [place], [address]. tel:[phone] Family History Family Member Type Diagnosis Age At Onset No Information Payers Payer name Insurance type Covered green party ID Authoriza tion(s) No Information Social History [...]
--- OUTSIDE RECORDS SUMMARY | 2024-05-18 10:35 | XMS_ITS | Patient Health Summary ---
Author Organization [facility] idio Address [address] [place] [address] Care Team Providers Care Tech Ed Teacher Name Role Phone Pcp, None Primary Care Provider Unavailabl e Note from [facility],non-owned Affiliates and Associated Physician Practices is amultiple site organization consisting of ambulatory clinics and hospital sitesin [place], [place], [place] and [place]. This disclosure is being madepursuant to the Care Everywhere program and may not contain all information available regarding this patient. Last updated 17.[facility] Allergies No known active allergies Medications * [...] Comments Blood Pressure 106/70 04/25/2023 9:11 AM PROCESS ENGINEERING TECHNICIAN Pulse 88 04/25/2023 9:11 AM PROCESS ENGINEERING TECHNICIAN Temperature 36.6 C (97.9 F) 04/25/2023 9:11 AM PROCESS ENGINEERING TECHNICIAN Respiratory Rate 16 04/25/2023 9:11 AM PROCESS ENGINEERING TECHNICIAN Oxygen Saturation 99% 04/25/2023 9:11 AM PROCESS ENGINEERING TECHNICIAN Inhaled Oxygen Concentration - - Weight 57.5 kg (126 lb 12.2 oz) 04/25/2023 9:11 AM PROCESS ENGINEERING TECHNICIAN Height 164 cm (5' 4.57 ) 04/25/2023 9:11 AM PROCESS ENGINEERING TECHNICIAN Body Mass Index 21.38 04/25/2023 9:11 AM PROCESS ENGINEERING TECHNICIAN Procedures * SARS-COV-2 (COVID-19)+INFLU A+B PCR RAPID(Performed 09/25/2020) * CULTURE URINE(Performed 02/26/2016) * TRICHOMONAS VAGINALIS YAW(Performed 02/26/2016) * NEISSERIA GONORRHOEAE YAW(Performed 02/26/2016) * CHLAMYDIA TRACHOMATIS YAW(Performed 02/26/2016) * HCG URINE QUALITATIVE - POCT (IP) [facility](Performed 02/26/2016) * URINALYSIS REFLEX TO MICROSCOPIC NO CULTURE(Performed 02/26/2016) Results * (ABNORMAL) SARS-COV-2 (COVID-19)+INFLU A+B PCR RAPID (09/25/2020 6:33 PM CDT) COVID-19 PCR Detected(AA) Not detected 09/26/19 7:04 PM CDT [facility] Influenza A Rapid YAW Not Detected Not Detected 09/25/2020 7:04 PM [facility] Influenza B YAW Rapid Not Detected Not Detected 09/25/2020 7:04 PM T [facility] Microbiology SPECIMEN FROM NASOPHARYNGEAL STRUCTURE / Unknown Collection / Unknown 09/25/2020 6:33 PM CDT 09/25/2020 6:42 PM CDT [facility] - 09/25/2020 7:04 PM CDT Samples with [...] acid amplification assay performance was validated by [facility]. This test has been authorized by [...] assay are available upon request. Reanna Marshall HUMAN RESOURCES SAFETY MANAGER-GRADES 1 THROUGH 5 TEACHER LAB - MICROBI OLOGY ORDERABLES [facility] [address] [place] [address], [facility] [phone] * (ABNORMAL) CULTURE URINE (02/26/2016 11:22 PM PROCESS ENGINEERING TECHNICIAN) Culture Urine ESCHERICHIA COLI(A) [facility] Comment:1,000,000 CFU/ML Esc herichia Coli Urine specimen (specimen) URINE / Unknown 02/26/2016 11:22 PM PROCESS ENGINEERING TECHNICIAN 02/26/2016 11:26 PM PROCESS ENGINEERING TECHNICIAN Narrative [facility] - 02/28/2016 3:21 PM PROCESS ENGINEERING TECHNICIAN Specimen Type->Urine Organism Antibiotic Method Susceptibility Escherichia [...] Huffman MD LAB - MICROBIOLOGY O RDERABLES [facility] [address] [place] [address], [facility] [phone] * NEISSERIA GONORRHOEAE YAW (02/26/2016 11:18 PM PROCESS ENGINEERING TECHNICIAN) Neisseria gonorrhoeae YAW Accession No: [id number] Specimen: Swab Reference: [id number] Test: Neisseria Gonorrhoeae, Nucleic Acid Amplification Test Interpretation: Neisseria gonorrhoeae: Not Detected Reference Range: Not Detected Comment: This analysis was performed using an U.S. FDA approved test methodology (Gen-Probe Aptima Combo 2). Test performed at [facility], [address] [place] [address] This case has been personally reviewed and interpreted by the attending (teaching) pathologist. Final Diagnosis performed by Lino Gutiérrez PHD. Electronically signed 03/03/2016 [facility]) Other (qualifier value) (Endocervical) 02/26/2016 11:18 PM PROCESS ENGINEERING TECHNICIAN 02/26/2016 11:26 PM PROCESS ENGINEERING TECHNICIAN Cyn Huffman MD LAB - MICROBIOLOGY O EMELINA Performing Organization Address [facility] de Phone Number [facility]) * TRICHOMONAS VAGINALIS YAW (02/26/2016 11:18 PM PROCESS ENGINEERING TECHNICIAN) Trichomonas vaginalis by YAW Accession No: [id number] Specimen: Swab Reference: [id number] Test: Trichomonas vaginalis, Nucleic Acid Amplification Test Interpretation: Trichomonas vaginalis: Not Detected Reference Range: Not Detected Comment: This analysis was performed using an [place] FDA approved test methodology (Gen-Probe Aptima Trichomonas vaginalis Assay). Test performed at [facility], [address] [place] [address] This case has been personally reviewed and interpreted by the attending (teaching) pathologist. Final Diagnosis performed by Lino Gutiérrez PHD. Electronically signed 03/03/2016 [facility]) Other (qualifier value) (Endocervical) 02/26/2016 11:18 PM PROCESS ENGINEERING TECHNICIAN 02/26/2016 11:26 PM PROCESS ENGINEERING TECHNICIAN Cyn Huffman MD LAB - MICROBIOLOGY O EMELINA Performing Organization Address [facility] Co de Phone Number [facility]) * CHLAMYDIA TRACHOMATIS YWA (02/26/2016 11:18 PM PROCESS ENGINEERING TECHNICIAN) Chlamydia trachomatis YAW Accession No: [id number] Specimen: Swab Reference: [id number] Test: Chlamydia Trachomatis, Nucleic Acid Amplification Test Interpretation: Chlamydia trachomatis: Not Detected Reference Range: Not Detected Comment: This analysis was performed using an U.S. FDA approved test methodology (Gen-Probe Aptima Combo 2). Test performed at [facility], [address] [place] [address] This case has been personally reviewed and interpreted by the attending (teaching) pathologist. Final Diagnosis performed by Lino Gutiérrez PHD. Electronically signed 03/03/2016 [facility] ([facility]) Other (qualifier value) (Endocervical) 02/26/2016 11:18 PM PROCESS ENGINEERING TECHNICIAN 02/26/2016 11:26 PM PROCESS ENGINEERING TECHNICIAN Cyn Huffman MD LAB - MICROBIOLOGY O RDERABLES Performing Organization Address City/[facility]/ZIP Co de Phone Number [facility] (BEAKER) * HCG URINE QUALITATIVE - POCT (IP) [facility] (02/26/2016 10:39 PM PROCESS ENGINEERING TECHNICIAN) Test Urine negative [facility] Urine specimen (specimen) 02/26/2016 10:39 PM PROCESS ENGINEERING TECHNICIAN Anders Monsivais MD LAB - POINT OF CARE ORDERABLES Performing Organization Address [facility] Co de Phone Number [facility] * (ABNORMAL) URINALYSIS REFLEX TO MICROSCOPIC NO CULTURE (02/26/2016 10:23 PM PROCESS ENGINEERING TECHNICIAN) Color UA Yellow Straw, Yellow, Colorless, Light Yellow [facility] Clarity UA Hazy(A) Clear [facility] Specific [place] UA 1.019 1.001 - 1.030 [facility] pH UA 6.5 5.0 - 8.0 [facility] Protein UA 200(A) <=20 mg/dL [facility] Glucose UA Negative Negative mg/dL [facility] Ketone UA Negative Negative mg/dL [facility] Bilirubin UA Negative Negative mg/dL [facility] Blood UA Large(A) Negative [facility] Nitrite UA Positive(A) Negative [facility] Leukocyte Esterase Large(A) Negative [facility] Urobilinogen UA <2.0 <2.0 mg/dL [facility] RBC UA >100(H) 0 - 8 /HPF [facility] WBC UA >100(H) 0 - 2 /HPF [facility] Bacteria UA Moderate(A) Rare, Occasional, None /HPF [facility] Squamous Epithelial Cells UA 15(H) 0 - 1 /HPF [facility] Mucus UA Many(A) None /LPF [facility] Urine specimen (specimen) 02/26/2016 10:23 PM PROCESS ENGINEERING TECHNICIAN 02/26/2016 10:31 PM PROCESS ENGINEERING TECHNICIAN Jo Lambert MD LAB - URINALYSIS ORD ERABLES [facility] [address] [phone] Care Teams Tech Ed Teacher Relationship Specialty Start Date End Date Pcp, None [address] [place] [address] PCP - General 04/25/23
[2024-05-18 11:42] VITALS: BP 128/72; PULSE 70; RESP 16; O2SAT 98
== END 2024-05-18 11:44 | disposition home or self-care (01) ==
PROVIDERS: Emergency Medicine; Emergency Provider Physician Assistant
DX: J06.9 Acute upper respiratory infection, unspecified (principal); R07.89 Other chest pain; M79.10 Myalgia, unspecified site; Z20.822 Contact with and (suspected) exposure to COVID-19; R94.31 Abnormal electrocardiogram [ECG] [EKG]
CPT/HCPCS: 36415; 71046; 80053; 83690; 84484; 85025; 85380; 85610; 85730; 87637; 93005; 99284; A9270